=== PATIENT | male | born 1960 ===

== ENCOUNTER 2020-05-02 10:37 | Outpatient (REF) | payer OTHER, SELFPAY ==
--- NOTE | ~2020-05-02 | XR_ITS ---
EXAMINATION: XR CERVICAL SPINE CLINICAL INFORMATION: Cervicalgia COMPARISON: None TECHNIQUE: 3 views of the cervical spine were obtained. FINDINGS: There is straightening of the cervical lordosis. The vertebral bodies are normal in height. The odontoid is unremarkable. There is no vertebral compression, spondylolisthesis, destructive process, or prevertebral soft tissue swelling. There are degenerative disc changes with disc narrowing greatest at C5-C6 but also present at C4-C5 and C6-C7. There is borderline retrolisthesis C4 on C5 and also at C5 on C6, both likely related to the degenerative changes. There is hardware overlying the left clavicle. AP view may suggest atherosclerotic calcifications in the carotid arteries. XR/XR cervical spine 3V IMPRESSION: 1. Degenerative disc changes C4-C7 with borderline retrolisthesis. 2. No cervical vertebral compression, destructive process, or prevertebral soft tissue swelling. 3. Suspect atherosclerotic calcifications carotid arteries.
[2020-05-02 14:06] LABS: Hematocrit 46.6 % (42-52); Mean Corpuscular HGB Conc 34.3 g/dl (31.0-36.0); Mean Corpuscular Hemoglobin 30.1 pg (27.0-33.0); Mean Corpuscular Volume 87.8 fL (80-98); Mean Platelet Volume 10.2 fL (9.4-12.4); Platelet Count 222 X10*3/uL (160-400); Red Blood Count 5.31 X10*6/uL (4.60-5.80); Red Cell Distribution Width 12.8 % (11.0-16.0); White Blood Count 5.6 X10*3/uL (4.8-10.8)
[2020-05-02 14:38] LABS: Alanine Aminotransferase 31 U/L (0-40); Albumin Level 4.6 g/dL (3.5-5.0); Alkaline Phosphatase 66 U/L (39-117); Anion Gap 16 (12-20); Aspartate Amino Transferase 43 U/L (5-37); Bilirubin Direct 0.3 mg/dL (0.0-0.5); Bilirubin Total 0.7 mg/dL (0.0-1.0); Blood Urea Nitrogen 22 mg/dL (9-16); Calcium 9.2 mg/dL (8.4-10.2); Carbon Dioxide 22 mmol/L (22-29); Chloride 105 mmol/L (96-108); Cholesterol 177 mg/dL; Estimated Glomerular Filt Rate 58; Glucose Random 130 mg/dL (60-115); HDL Cholesterol 66 mg/dL; LDL Cholesterol Calculated 59 mg/dl; Potassium 4.5 mmol/L (3.3-5.1); Sodium 138 mmol/L (135-145); Total Protein 7.6 g/dL (6.5-8.0); Triglycerides 263 mg/dL
[2020-05-02 15:00] LABS: Thyroid Stimulating Hormone 0.88 uIU/mL (0.32-4.0)
[2020-05-07 10:37] LABS: Vitamin D 25-OH, D2 9 ng/mL; Vitamin D 25-OH, D3 21 ng/mL; Vitamin D 25-OH, Total 30 ng/mL (30-100)
== END 2020-05-02 10:38 | disposition home or self-care (01) ==
LOC: HO.HMGCX 10:37
PROVIDERS: PCP Internal Medicine; Visit Provider Internal Medicine
DX: M54.2 Cervicalgia (principal)
CPT/HCPCS: 36415; 72040; 80048; 80061; 80076; 82306; 84443; 85027

== ENCOUNTER 2020-07-06 12:50 | Outpatient (REF) | payer OTHER, SELFPAY ==
[2020-07-06 14:40] LABS: Prostate Specific Antigen Scr 0.37 ng/mL (<0.05-4.0)
== END 2020-07-06 12:51 | disposition home or self-care (01) ==
LOC: HO.HMGCLDS 12:50
PROVIDERS: PCP Internal Medicine; Visit Provider Internal Medicine
DX: Z12.5 Encounter for screening for malignant neoplasm of prostate (principal); N40.0 Benign prostatic hyperplasia without lower urinary tract symptoms
CPT/HCPCS: 36415; 84153

== ENCOUNTER 2020-09-28 13:00 | Outpatient (RCR) | payer OTHER, SELFPAY | END 2021-01-04 15:00 | disposition home or self-care (01) | LOC: HO.PTWFD 13:00 | PROVIDERS: PCP Internal Medicine; Visit Provider Internal Medicine | DX: I63.9 Cerebral infarction, unspecified (principal) | CPT/HCPCS: 97110; 97112; 97140; 97163; 97164; 97530; 97535 ==

== ENCOUNTER → 2020-10-31 12:31 | Outpatient (BNVA) | payer OTHER, SELFPAY | PROVIDERS: PCP Internal Medicine; Visit Provider Internal Medicine | DX: I48.91 Unspecified atrial fibrillation (principal); R06.00 Dyspnea, unspecified; I12.9 Hypertensive chronic kidney disease with stage 1 through stage 4 chronic kidney disease, or unspecified chronic kidney disease; N18.30 Chronic kidney disease, stage 3 unspecified; U07.1 COVID-19; Z86.73 Personal history of transient ischemic attack (TIA), and cerebral infarction without residual deficits; Z88.8 Allergy status to other drugs, medicaments and biological substances; Z79.899 Other long term (current) drug therapy | CPT/HCPCS: 99212 ==

== ENCOUNTER 2020-11-30 12:56 | Outpatient (REF) | payer OTHER, SELFPAY ==
[2020-11-30 13:53] LABS: MANUAL DIFF FLAG NO
[2020-11-30 14:22] LABS: Basophils Percent Auto 0.6 % (0-2); Eosinophils Absolute Auto 0.1 X10*3/uL (0.0-0.4); Eosinophils Percent Auto 1.8 % (0-4); Hematocrit 43.6 % (42-52); Hemoglobin 15.3 g/dl (14.0-18.0); Imm Gran Abs Auto 0.02 X10*3/uL (0.00-0.03); Imm Gran Pct Auto 0.3 % (0.0-0.4); Lymphocytes Absolute Auto 1.6 X10*3/uL (1.2-4.9); Lymphocytes Percent Auto 24.6 % (20-40); Mean Corpuscular HGB Conc 35.1 g/dl (31.0-36.0); Mean Corpuscular Hemoglobin 29.5 pg (27.0-33.0); Mean Platelet Volume 9.9 fL (9.4-12.4); Monocytes Absolute Auto 0.6 X10*3/uL (0.1-1.2); Monocytes Percent Auto 9.4 % (2-11); Neutrophils Absolute Auto 4.2 X10*3/uL (2.0-8.3); Neutrophils Percent Auto 63.3 % (45-73); Platelet Count 227 X10*3/uL (160-400); Red Blood Count 5.19 X10*6/uL (4.60-5.80); Red Cell Distribution Width 12.7 % (11.0-16.0); White Blood Count 6.6 X10*3/uL (4.8-10.8)
== END 2020-11-30 12:57 | disposition home or self-care (01) ==
LOC: HO.LAB 12:56
PROVIDERS: PCP Internal Medicine; Visit Provider Internal Medicine Pulmonary Disease
DX: J45.909 Unspecified asthma, uncomplicated (principal); Z57.5 Occupational exposure to toxic agents in other industries; Z86.16 Personal history of COVID-19; Z91.09 Other allergy status, other than to drugs and biological substances; Z79.899 Other long term (current) drug therapy
CPT/HCPCS: 36415; 82785; 85025; 86003; 99202

== ENCOUNTER 2020-12-17 15:40 | Outpatient (REF) | payer OTHER, SELFPAY ==
--- NOTE | 2020-12-17 17:07 | PFT_ITS ---
FLOWS: FEV1 69% of predicted at 2.14 L. FVC 70% of predicted at 2.82 L. FEV1 to FVC ratio of 0.76. No bronchodilator response. LUNG VOLUMES: Total lung capacity 81% of predicted at 5.03 L. Residual volume 102% of predicted at 2.12 L. Slow vital capacity 70% of predicted at 2.90 L. Expiratory reserve volume 46% of predicted at 0.52 L. Diffusion capacity is mildly decreased, diffusion capacity corrects to normal after adjustment for alveolar ventilation. IMPRESSION: No obstructive or restrictive ventilatory defect. No bronchodilator response. Decreased expiratory reserve volume suggests extrathoracic restriction likely secondary to abdominal obesity. Bradford Nova MD AP/MODL / [id number]
== END 2020-12-17 15:41 | disposition home or self-care (01) ==
LOC: HO.RESP 15:40
PROVIDERS: PCP Internal Medicine; Visit Provider Internal Medicine Pulmonary Disease
DX: J45.909 Unspecified asthma, uncomplicated (principal)
CPT/HCPCS: 94060; 94727; 94729

== ENCOUNTER → 2020-12-25 10:05 | Outpatient (BNVA) | payer OTHER, SELFPAY | PROVIDERS: PCP Internal Medicine; Visit Provider Internal Medicine Pulmonary Disease | DX: J45.909 Unspecified asthma, uncomplicated (principal); Z91.09 Other allergy status, other than to drugs and biological substances | CPT/HCPCS: 99212 ==

== ENCOUNTER → 2021-01-23 09:31 | Outpatient (BNVA) | payer OTHER, SELFPAY | PROVIDERS: PCP Internal Medicine; Visit Provider Internal Medicine Pulmonary Disease | DX: J45.909 Unspecified asthma, uncomplicated (principal); Z91.09 Other allergy status, other than to drugs and biological substances | CPT/HCPCS: 99212 ==

== ENCOUNTER 2021-03-13 11:14 | Outpatient (REF) | payer OTHER, SELFPAY ==
[2021-03-13 12:37] LABS: Hematocrit 46.8 % (42.0-52.0); Hemoglobin 15.3 g/dl (14.0-18.0); Mean Corpuscular HGB Conc 32.7 g/dl (31.0-36.0); Mean Corpuscular Hemoglobin 29.5 pg (27.0-33.0); Mean Corpuscular Volume 90.2 fL (80.0-98.0); Mean Platelet Volume 10.3 fL (9.4-12.4); Platelet Count 221 X10*3/uL (160-400); Red Blood Count 5.19 X10*6/uL (4.60-5.80); Red Cell Distribution Width 13.7 % (11.0-16.0); White Blood Count 6.3 X10*3/uL (4.8-10.8)
[2021-03-13 12:42] LABS: Appearance Urine HAZY; Color Urine YELLOW; Glucose Urine UA NEG (NEG); Leukocyte Esterase Urine NEG (NEG); Nitrite Urine NEG (NEG); PH 6.5 (5.0-8.0); Specific Gravity - Urine 1.025 (1.005-1.025); Urine Blood NEG (NEG); Urine Ketones 5 MG/DL (NEG); Urine Protein 1+ MG/DL (NEG-TRACE)
[2021-03-13 12:57] LABS: Hyaline Casts Urine 0-2 /LPF
[2021-03-13 12:58] LABS: RBC Urine 0 /HPF (0); WBC Urine 0-2 /HPF (0-4)
[2021-03-13 12:59] LABS: Amorphous Sediment Urine 1+ /LPF
[2021-03-13 13:00] LABS: Renal Epithelial Cells Urine TRACE /LPF; Squamous Epithelial Cell Urine 1+ /LPF
[2021-03-13 13:02] LABS: Sperm Urine NOTED
[2021-03-13 13:06] LABS: Alanine Aminotransferase 35 U/L (0-40); Albumin Level 4.5 g/dL (3.5-5.0); Alkaline Phosphatase 73 U/L (39-117); Anion Gap 13 (12-20); Aspartate Amino Transferase 37 U/L (5-37); Bilirubin Direct 0.2 mg/dL (0.0-0.5); Bilirubin Total 0.5 mg/dL (0.0-1.0); Blood Urea Nitrogen 21 mg/dL (9-16); C Reactive Protein 0.43 mg/dL (< or = 0.50); Calcium 9.6 mg/dL (8.4-10.2); Carbon Dioxide 26 mmol/L (22-29); Chloride 107 mmol/L (96-108); Cholesterol 163 mg/dL; Estimated Glomerular Filt Rate 45; Glucose Random 109 mg/dL (60-115); HDL Cholesterol 53 mg/dL; LDL Cholesterol Calculated 76 mg/dl; Potassium 4.9 mmol/L (3.3-5.1); Sodium 141 mmol/L (135-145); Total Protein 7.4 g/dL (6.5-8.0); Triglycerides 172 mg/dL
[2021-03-15 22:33] LABS: Immunoglobulin E 185 kU/L (<OR=114)
== END 2021-03-13 11:15 | disposition home or self-care (01) ==
LOC: HO.LAB 11:14
PROVIDERS: Internal Medicine Pulmonary Disease; PCP Internal Medicine; Visit Provider Internal Medicine
DX: I48.91 Unspecified atrial fibrillation (principal); I12.9 Hypertensive chronic kidney disease with stage 1 through stage 4 chronic kidney disease, or unspecified chronic kidney disease; N18.30 Chronic kidney disease, stage 3 unspecified; I63.9 Cerebral infarction, unspecified; M54.50 Low back pain, unspecified; Z91.09 Other allergy status, other than to drugs and biological substances
CPT/HCPCS: 36415; 80048; 80061; 80076; 81001; 82785; 85027; 86140

== ENCOUNTER → 2021-03-21 09:01 | Outpatient (BNVA) | payer OTHER, SELFPAY | PROVIDERS: PCP Internal Medicine; Referring Provider Internal Medicine; Visit Provider Internal Medicine Cardiovascular Disease | DX: R06.00 Dyspnea, unspecified (principal); I34.0 Nonrheumatic mitral (valve) insufficiency; I48.91 Unspecified atrial fibrillation; N18.30 Chronic kidney disease, stage 3 unspecified | CPT/HCPCS: 93005; 99212 ==

== ENCOUNTER → 2021-04-05 07:37 | Outpatient (REF) | payer OTHER, SELFPAY ==
--- NOTE | 2021-04-05 07:40 | CA_ITS ---
Transthoracic Echocardiogram Patient (Last, First, Middle): Andrey Chao A Gender: Male Date of : 1960 Age: 60 Procedure Date: 04/05/2021 Procedure Type: Transthoracic Echocardiogram Location: OP Height: 170.18 cm Weight: 95.26 kg BSA: 2.06 m2 Heart Rate: bpm BP: 190 / 89 mmHg Coal Miner: NIKOLAS Referring MD: Keith Soliman MD Symptoms: I34.0 - Nonrheumatic mitral (valve) insufficiency Study Quality: Fair Conclusions: - Normal left ventricular size, thickness, and systolic function. The visually estimated ejection fraction is between 60-65%. - Normal right ventricular cavity size and systolic function. - The left atrium is severely dilated. The right atrium is moderately dilated. - The mitral valve appears myxomatous. There is mild anterior and posterior mitral leaflet thickening. There is mild posterior mitral leaflet prolapse. There is moderate mitral valve regurgitation. The mitral regurgitation jet is directed anteriorly. - Normal tricuspid valve structure and function. There is mild tricuspid valve regurgitation. Findings Left Ventricle Normal left ventricular size, thickness, and systolic function. The visually estimated ejection fraction is between 60-65%. There is no evidence of regional wall motion abnormalities. Abnormal diastolic function is noted. E/E prime ratio is >15, consistent with elevated filling pressures. Right Ventricle Normal right ventricular cavity size and systolic function. Atria The left atrium is severely dilated. The right atrium is moderately dilated. Aortic Valve Normal aortic valve structure and function. There is no aortic valve stenosis. There is no aortic valve regurgitation. Mitral Valve The mitral valve appears myxomatous. There is mild anterior and posterior mitral leaflet thickening. There is mild posterior mitral leaflet prolapse. There is moderate mitral valve regurgitation. The mitral regurgitation jet is directed anteriorly. There is no mitral valve stenosis. Pulmonic Valve Normal pulmonic valve structure and function. There is trace pulmonic valve regurgitation. Tricuspid Valve Normal tricuspid valve structure and function. There is mild tricuspid valve regurgitation. Normal right atrial pressure. There is no evidence of pulmonary hypertension. Great Vessels All visible segments of the aorta are normal in size. The visualized portions of the pulmonary artery and branches are normal. Venous The inferior vena cava is normal in size and collapses greater than 50% with inspiration. Pericardium/Pleural There is no evidence of pericardial effusion. Prior Study Comparison Changes noted compared to prior study dated: 03/11/2018. Severely dilated LA. Measurements 2D Linear Measurements IVSd: 0.81 0.6-0.9/0.6-1.0 cm LVIDd: 5.39 3.9-5.3/4.2-5.9 cm LVIDd Index: 2.62 2.4-3.2/2.2-3.1 cm/m2 LVIDs: 3.54 2.0-3.6 cm LVPWd: 0.82 0.7-1.1 cm Ao Root: 3.10 2.1-3.5 cm LA Diam: 5.60 2.7-3.8/3.0-4.0 cm LAIDs Index: 2.72 1.5-2.3 cm/m2 LV Mass: 197.86 67-162/88-224 g LV Mass Index: 96.05 43-95/49-115 g/m2 LVOT Diam: 2.20 3.0+(-)1.3 cm 2D Systolic Function EF 4C: 66.00 >55% EF 2C: 62.50 >55% EF BiP: 61.30 >55% Mitral Valve MV Pk E: 1.39 MV PK A: 0.58 MV Decel Time: 141.00 E/A: 2.40 E'Lateral: 12.00 E'Medial: 6.85 E/E' Med: 20.30 E/E' Lat: 11.60 PHT: 41.00 MVA PHT: 5.37 Decel [place]: 9.89 MR Vol - PW Dopp: 47.60 MR VTI: 1.36 MR ERO: 35.00 MR Alias Sabino: 0.42 MR RAD: 0.80 Aortic Valve AoV Pk Sabino: 1.03 AoV Mn Sabino: 0.64 AoV VTI: 0.20 AoV Pk Grad: 4.00 Aov Mn Grad: 2.00 BRIAN Cont.VTI: 3.40 LVOT LVOT Pk [place]ino: 0.91 LVOT Mn Sabino: 0.58 LVOT VTI: 0.18 LVOT Pk Grad: 3.00 LVOT Mn Grad: 2.00 LVOT Diam: 2.20 LVOT Area: 3.80 Diastolic Function MV Pk E: 1.39 MV Pk A: 0.58 E/A: 2.40 E'Medial: 6.85 E/E' Med: 20.30 E' Laterial: 12.00 E/E' Lat: 11.60 Right Ventricle TAPSE (mm): 17.50 TVS' Sabino: 9.36 Tricuspid Valve TR Pk Sabino: 2.76 TR Pk Grad: 30.00 RA Press: 3.00 RVSP: 33.00 Great Vessels Aorta Ao Root-2D: 3.10 2.0-3.7 cm Ao Asc: 3.30 2.1-3.4 cm Updated in Other Vendor System with Status of Final Keith Soliman MD electronically signed on 04/06/2021 11:02:09 PM with status of Final
== END ==
LOC: HO.CARD 07:37
PROVIDERS: Visit Provider Internal Medicine Cardiovascular Disease
DX: I34.0 Nonrheumatic mitral (valve) insufficiency (principal)
CPT/HCPCS: 93306

== ENCOUNTER → 2021-05-29 09:26 | Outpatient (BNVA) | payer OTHER, SELFPAY | PROVIDERS: PCP Internal Medicine; Visit Provider Internal Medicine Pulmonary Disease | DX: J45.909 Unspecified asthma, uncomplicated (principal); Z91.09 Other allergy status, other than to drugs and biological substances | CPT/HCPCS: 99212 ==

== ENCOUNTER → 2021-07-11 13:37 | Outpatient (BNVA) | payer OTHER, SELFPAY | PROVIDERS: PCP Internal Medicine; Referring Provider Internal Medicine; Visit Provider Nurse Practitioner Family | DX: R06.00 Dyspnea, unspecified (principal); J45.909 Unspecified asthma, uncomplicated; I34.0 Nonrheumatic mitral (valve) insufficiency; I48.91 Unspecified atrial fibrillation; I10 Essential (primary) hypertension; R07.89 Other chest pain | CPT/HCPCS: 93005; Q3014 ==

== ENCOUNTER 2021-09-11 10:14 | Outpatient (REF) | payer OTHER, SELFPAY ==
[2021-09-11 11:18] LABS: MANUAL DIFF FLAG NO
[2021-09-11 11:34] LABS: Basophils Percent Auto 0.6 % (0-2); Eosinophils Absolute Auto 0.1 X10*3/uL (0.0-0.4); Eosinophils Percent Auto 1.7 % (0-4); Hematocrit 46.8 % (42.0-52.0); Hemoglobin 15.8 g/dl (14.0-18.0); Imm Gran Abs Auto 0.01 X10*3/uL (0.00-0.03); Imm Gran Pct Auto 0.2 % (0.0-0.4); Lymphocytes Absolute Auto 1.6 X10*3/uL (1.2-4.9); Lymphocytes Percent Auto 30.1 % (20-40); Mean Corpuscular HGB Conc 33.8 g/dl (31.0-36.0); Mean Corpuscular Hemoglobin 29.8 pg (27.0-33.0); Mean Corpuscular Volume 88.3 fL (80.0-98.0); Mean Platelet Volume 9.9 fL (9.4-12.4); Monocytes Absolute Auto 0.4 X10*3/uL (0.1-1.2); Monocytes Percent Auto 7.9 % (2-11); Neutrophils Absolute Auto 3.2 x10*3/uL (2.0-8.3); Neutrophils Percent Auto 59.5 % (45-73); Platelet Count 222 X10*3/uL (160-400); Red Cell Distribution Width 12.6 % (11.0-16.0); White Blood Count 5.3 X10*3/uL (4.8-10.8)
[2021-09-11 11:52] LABS: INTERNATIONAL NORM RATIO 1.1 (0.9-1.1); Prothrombin Time 12.4 SEC (10.0-13.1)
[2021-09-11 12:01] LABS: Anion Gap 14 (12-20); Blood Urea Nitrogen 24 mg/dL (9-16); Calcium 9.7 mg/dL (8.4-10.2); Carbon Dioxide 24 mmol/L (22-29); Chloride 105 mmol/L (96-108); Estimated Glomerular Filt Rate 50; Glucose Random 116 mg/dL (60-115); Potassium 4.4 mmol/L (3.3-5.1); Sodium 139 mmol/L (135-145)
== END 2021-09-11 10:15 | disposition home or self-care (01) ==
LOC: HO.WFDLDS 10:14
PROVIDERS: Visit Provider Nurse Practitioner Family
DX: R07.89 Other chest pain (principal); I34.0 Nonrheumatic mitral (valve) insufficiency
CPT/HCPCS: 36415; 80048; 85025; 85610

== ENCOUNTER → 2021-10-03 13:04 | Outpatient (BNVA) | payer OTHER, SELFPAY | PROVIDERS: PCP Internal Medicine; Referring Provider Internal Medicine; Visit Provider Nurse Practitioner Family | DX: I48.91 Unspecified atrial fibrillation (principal); R06.00 Dyspnea, unspecified; R07.89 Other chest pain; Z98.890 Other specified postprocedural states; J45.909 Unspecified asthma, uncomplicated; I34.0 Nonrheumatic mitral (valve) insufficiency; I10 Essential (primary) hypertension | CPT/HCPCS: 99212 ==

== ENCOUNTER 2021-10-22 12:42 | Outpatient (REF) | payer OTHER, SELFPAY ==
[2021-10-22 14:33] LABS: Anion Gap 19 (12-20); Blood Urea Nitrogen 22 mg/dL (9-16); Calcium 9.3 mg/dL (8.4-10.2); Carbon Dioxide 25 mmol/L (22-29); Chloride 101 mmol/L (96-108); Estimated Glomerular Filt Rate 42; Glucose Random 123 mg/dL (60-115); Sodium 141 mmol/L (135-145)
== END 2021-10-22 12:43 | disposition home or self-care (01) ==
LOC: HO.WFDLDS 12:42
PROVIDERS: Visit Provider Nurse Practitioner Family
DX: I48.91 Unspecified atrial fibrillation (principal); R06.00 Dyspnea, unspecified
CPT/HCPCS: 36415; 80048

== ENCOUNTER 2021-10-30 11:34 | Day surgery (SDC) | payer OTHER, SELFPAY ==
[2021-10-24 13:59] VITALS: BMI 33.1
--- NOTE | 2021-10-29 09:23 | P.CONAN_ITS ---
Documented by User: Estee Mac NP 10/29/21 09:44 HPI - Anesthesia Eval Consult details Narrative: 61yo M for Cardioversion Eliquis for afib PMFSH Active Problems Active Problems: All Active Problems (Updated 10/24/21 @ 13:59 by Mahi Coffman RN) Prostatism (Acute) Paronychia of fifth toe, left (Acute) GROVE (dyspnea on exertion) (Acute) Asthma (Acute) Environmental allergies (Acute) Chronic pain syndrome (Acute) Mitral regurgitation (Acute) Chest discomfort (Acute) Atrial fibrillation (Acute) History of cardiac cath (Acute) Stage 3 chronic kidney disease (Acute) Cerebrovascular accident (CVA) determined by clinical assessment (Acute) Atrial fibrillation (Acute) Low back pain (Acute) Neck pain (Acute) Essential (primary) hypertension (Acute) Past Medical History Medical History Atrial fibrillation Cerebrovascular accident (CVA) determined by clinical assessment Essential (primary) hypertension History of COVID-19 Low back pain Neck pain Stage 3 chronic kidney disease Family History Family History Father No problems noted. Mother Hypertension Surgical History Surgical History History of cardiac cath History of shoulder surgery Social History Social History Housing: House Alcohol intake: current Alcohol intake frequency: a few times a week Patient Tobacco Use Status: Never used Tobacco e-Cigarette/Vaping Use: Never Used Second Hand Smoke Exposure: No Use of substances other than those prescribed or required for medical reasons: No Are you DNR?: No Advance Directives: No Advance Directives Information Provided: Yes service: Yes (was in [employer]) Current occupational status: disabled Cognitive needs: No Hearing needs: No Vision needs: No Meds Allergies Allergy/AdvReac Type Severity Reaction Status Date / Time lisinopril Allergy Intermediate swelling Verified 10/24/21 14:01 Home Medications Medication Instructions Recorded Confirmed Last Taken Type furosemide 40 mg tablet 40 mg PO DAILY 10/03/21 10/24/21 Unknown History Exam Exam Date and Time: October 29, [id number] Height,Weight and Vital Signs: Height 5 ft 8 in Weight 98.8 kg Pertinent Lab Results Pertinent Lab Results: Laboratory Tests 09/11/21 10/22/21 10:20 12:50 WBC 5.3 Hgb 15.8 Hct 46.8 Plt Count 222 Sodium 141 Potassium 4.0 Chloride 101 Carbon Dioxide 25 BUN 22 H Creatinine 1.65 H Narrative Narrative: Cardiac catheterization done on 09/17/2021 showing normal coronary arteries, mildly elevated pressures and he was started on Lasix 40 mg daily. EKG 06/2021 atrial fibrillation with no acute ST or T-wave abnormalities, rate 89, QTC 442 millisecond ECHO 03/2021 Conclusions: - Normal left ventricular size, thickness, and systolic function. The visually estimated ejection fraction is between 60-65%.? ? ? - Normal right ventricular cavity size and systolic function.? ? - The left atrium is severely dilated.? The right atrium is? ? ? moderately dilated.? - The mitral valve appears myxomatous.? There is mild anterior ? and posterior mitral leaflet thickening. There is mild posterior mitral leaflet prolapse.? There is moderate mitral valve ? regurgitation.? The mitral regurgitation jet is directed ? anteriorly.? - Normal tricuspid valve structure and function.? There is mild? tricuspid valve regurgitation. ? ? Assessment and Plan Assessment Anesthesia Assessment: Chart Reviewed Documented by User: Goran Chavez MD 10/30/21 12:58 [facility] Past Medical History Medical History Atrial fibrillation Cerebrovascular accident (CVA) determined by clinical assessment Essential (primary) hypertension History of COVID-19 Low back pain Neck pain Stage 3 chronic kidney disease Family History Family History Father No problems noted. Mother Hypertension Family history of problems with anesthesia: No Surgical History Surgical History History of cardiac cath History of shoulder surgery History of Problems with Anesthesia: No Social History Social History Housing: House Alcohol intake: current Alcohol intake frequency: a few times a week Patient Tobacco Use Status: Never used Tobacco e-Cigarette/Vaping Use: Never Used Second Hand Smoke Exposure: No Use of substances other than those prescribed or required for medical reasons: No Are you DNR?: No Advance Directives: No Advance Directives Information Provided: Yes service: Yes (was in [employer]) Current occupational status: disabled Cognitive needs: No Hearing needs: No Vision needs: No Meds Allergies Allergy/AdvReac Type Severity Reaction Status Date / Time lisinopril Allergy Intermediate swelling Verified 10/24/21 14:01 Home Medications Medication Instructions Recorded Confirmed Last Taken Type furosemide 40 mg tablet 40 mg PO DAILY 10/03/21 10/24/21 Unknown History Exam Airway Mallampati Class: II TM Dist: >3cm Neck ROM: Full Loose/Missing/Broken Teeth: No Heart: irreg irreg s1s2 Lungs: cta b/l Assessment and Plan Assessment Anesthesia Assessment: Anesthesia Plan Discussed Final Anesthetic Review Family History of Problems with Anesthesia: No History of Problems with Anesthesia: No NPO: Yes ASA Class: III Final Preanesthetic Review: No Changes in Pt Med Stat, Meds/Allgs Chart Reviewed, Consent Obtained/Reviewed and Anes Risks/Benef Reviewed Patient Risk: Intermediate Procedure Risk: Intermediate Assessment/Block/Sedation in SS: Assess/Block/Sedation-SS Anesthetic Plan Anesthetic Plan: GA and Agree w/ Assess. and Plan Disposition: Standard PACU
--- NOTE | 2021-10-30 | ECG_ITS ---
Test Reason : cardioversion Blood Pressure : / mmHG Vent. Rate : 059 BPM Atrial Rate : 059 BPM P-R Int : 190 ms QRS Dur : 092 ms QT Int : 460 ms P-R-T Axes : 070 000 036 degrees QTc Int : 455 ms Sinus bradycardia with Premature atrial complexes Otherwise normal ECG No previous ECGs available Referred By: Keith Soliman Electronically Signed By:PERRY LOGAN
[2021-10-30 12:29] VITALS: BMI 32.8
[2021-10-30 13:00] VITALS: BP 120/80; PULSE 66; RESP 16; TEMP 36.4; O2SAT 97
--- NOTE | 2021-10-30 13:06 | HO.ANESPROP2 ---
HPI - Anesthesia Eval Consult details Narrative: for cardioversion. [facility] Active Problems Active Problems: All Active Problems (Updated 10/24/21 @ 13:59 by Mahi Coffman RN) Prostatism (Acute) Paronychia of fifth toe, left (Acute) GROVE (dyspnea on exertion) (Acute) Asthma (Acute) Environmental allergies (Acute) Chronic pain syndrome (Acute) Mitral regurgitation (Acute) Chest discomfort (Acute) Atrial fibrillation (Acute) History of cardiac cath (Acute) Stage 3 chronic kidney disease (Acute) Cerebrovascular accident (CVA) determined by clinical assessment (Acute) Atrial fibrillation (Acute) Low back pain (Acute) Neck pain (Acute) Essential (primary) hypertension (Acute) Past Medical History Medical History Atrial fibrillation Cerebrovascular accident (CVA) determined by clinical assessment Essential (primary) hypertension History of COVID-19 Low back pain Neck pain Stage 3 chronic kidney disease Family History Family History Father No problems noted. Mother Hypertension Family history of problems with anesthesia: No Surgical History Surgical History History of cardiac cath History of shoulder surgery History of Problems with Anesthesia: No Social History Social History Housing: House Alcohol intake: current Alcohol intake frequency: a few times a week Patient Tobacco Use Status: Never used Tobacco e-Cigarette/Vaping Use: Never Used Second Hand Smoke Exposure: No Use of substances other than those prescribed or required for medical reasons: No Are you DNR?: No Advance Directives: No Advance Directives Information Provided: Yes service: Yes (was in [employer]) Current occupational status: disabled Cognitive needs: No Hearing needs: No Vision needs: No Meds Allergies Allergy/AdvReac Type Severity Reaction Status Date / Time lisinopril Allergy Intermediate swelling Verified 10/24/21 14:01 Active Medications: Current Medications Albuterol Sulfate (Albuterol Sulfate (0.083%) 2.5 Mg/3 Ml Vial.Neb) 2.5 mg INHALE ONCE PRN PRN Reason: Shortness of Breath/Wheezing Lactated Ringer's (Lr) 1,000 mls @ 50 mls/hr IVCONT .Q20H IFRAH Ondansetron HCl (Ondansetron Hcl 4 Mg/2 Ml Vial) 4 mg IVPUSH ONCE PRN PRN Reason: Nausea and Vomiting Home Medications Medication Instructions Recorded Confirmed Last Taken Type furosemide 40 mg tablet 40 mg PO DAILY 10/03/21 10/24/21 Unknown History Exam Exam Date and Time: October 30, 2021 1306 Height,Weight and Vital Signs: Height 5 ft 7 in Weight 95.254 kg Assessment and Plan Final Anesthetic Review Family History of Problems with Anesthesia: No History of Problems with Anesthesia: No
[2021-10-30] MEDS: Lactated Ringers 1,000 ML 50 ML IVCONT (13:07)
--- NOTE | 2021-10-30 13:32 | MHC.SHP ---
Pre-Procedural Eval Section A Date of Service: 10/30/21 The patient is an INPATIENT: No Section B Chief Complaint: a-fib Details of Present Illness: Afib. Here for cardioversion. Allergies: Allergies Allergy/AdvReac Type Severity Reaction Status Date / Time lisinopril Allergy Intermediate swelling Verified 10/24/21 14:01 Plan Diagnosis/Plan: Unchanged I have reviewed the history and physical and performed a pertinent physical examination on my patient. No changes have occurred unless specified.
--- NOTE | 2021-10-30 13:57 | HO.CARDIVERS ---
Cardioversion Procedure Note Cardioversion Date of Procedure: 10/30/21 Ordering Provider: Keith Soliman Performing Provider: Keith Soliman Indication for Procedure: Afib Performed with Transesophageal Echo: No History: 61 male with moderate MR, GROVE and Afib. Here for cardioversion. Consent: Verbal and Written consent was obtained from the patient before starting. The patient was made aware of the risk of stroke, aspiration and failure. Procedure: After consent obtained, defib pads were attached and the patient was sedated by the anesthesia team. Once adequate sedation achieved, the patient was given one synchronized shock of 200 J. He converted to sinus rhythm and went back into Afib. At this stage we gave 150 mg IV amiodarone and tried cardioversion which reverted him to sinus rhythm and he stayed sinus. Complications: none Recommendations: Stop Diltiazem. Adding Flecainide 100 mg BID. Holter x 3 days to assess Afib burden.
[2021-10-30 14:00] VITALS: BP 108/73; PULSE 58; RESP 16; TEMP 36.3; O2SAT 97
[2021-10-30 14:16] VITALS: BP 113/70; PULSE 56; RESP 17; TEMP 37.3; O2SAT 97
== END 2021-10-30 14:50 | disposition home or self-care (01) ==
PROVIDERS: Visit Provider Internal Medicine Cardiovascular Disease
PROC: 5A2204Z Restoration of Cardiac Rhythm, Single (ICD-10-PCS; principal; 2021-10-30 13:00)
DX: I48.19 Other persistent atrial fibrillation (principal); R07.89 Other chest pain; R06.00 Dyspnea, unspecified; J45.909 Unspecified asthma, uncomplicated; I34.0 Nonrheumatic mitral (valve) insufficiency; I26.99 Other pulmonary embolism without acute cor pulmonale; I12.9 Hypertensive chronic kidney disease with stage 1 through stage 4 chronic kidney disease, or unspecified chronic kidney disease; N18.30 Chronic kidney disease, stage 3 unspecified; E66.9 Obesity, unspecified; Z68.33 Body mass index [BMI] 33.0-33.9, adult; Z79.01 Long term (current) use of anticoagulants; Z79.51 Long term (current) use of inhaled steroids; Z79.899 Other long term (current) drug therapy; Z88.8 Allergy status to other drugs, medicaments and biological substances; Z86.16 Personal history of COVID-19; Z86.73 Personal history of transient ischemic attack (TIA), and cerebral infarction without residual deficits; Z98.890 Other specified postprocedural states
CPT/HCPCS: 92960; 93005; J0282

== ENCOUNTER → 2021-11-26 13:47 | Outpatient (BNVA) | payer OTHER, SELFPAY | PROVIDERS: PCP Internal Medicine; Referring Provider Internal Medicine; Visit Provider Nurse Practitioner Family | DX: I48.19 Other persistent atrial fibrillation (principal); R06.00 Dyspnea, unspecified; J45.909 Unspecified asthma, uncomplicated; I34.0 Nonrheumatic mitral (valve) insufficiency; I10 Essential (primary) hypertension; Z79.899 Other long term (current) drug therapy | CPT/HCPCS: 93005; 99212 ==

== ENCOUNTER → 2021-11-27 09:34 | Outpatient (BNVA) | payer OTHER, SELFPAY | PROVIDERS: PCP Internal Medicine; Visit Provider Internal Medicine Pulmonary Disease | DX: J45.909 Unspecified asthma, uncomplicated (principal); R06.00 Dyspnea, unspecified; Z91.09 Other allergy status, other than to drugs and biological substances | CPT/HCPCS: 99212 ==

== ENCOUNTER → 2021-12-09 07:24 | Outpatient (REF) | payer OTHER, SELFPAY ==
--- NOTE | 2021-12-09 07:26 | HM_ITS ---
Conclusion: 1. Patient was monitored for total period of 3 days and 4 hours 2. Baseline was atrial fibrillation with average heart of 75 beats per minute 3. No significant pauses or bradycardia noted 4. Total of 228 PVCs accounting for 0.07% of total beats accounting for rare PVCs 5. Patient reported symptoms of shortness of breath and chest tightness that correlated with sinus rhythm MTDD
== END ==
LOC: HO.CARD 07:24
PROVIDERS: Visit Provider Nurse Practitioner Family
DX: I48.91 Unspecified atrial fibrillation (principal)
CPT/HCPCS: 93242

== ENCOUNTER → 2022-03-13 13:34 | Outpatient (BNVA) | payer OTHER, SELFPAY | PROVIDERS: PCP Internal Medicine; Referring Provider Internal Medicine; Visit Provider Internal Medicine Cardiovascular Disease | DX: R06.00 Dyspnea, unspecified (principal); I48.91 Unspecified atrial fibrillation; I34.0 Nonrheumatic mitral (valve) insufficiency; I10 Essential (primary) hypertension; N18.30 Chronic kidney disease, stage 3 unspecified; J45.909 Unspecified asthma, uncomplicated; Z86.711 Personal history of pulmonary embolism; Z98.890 Other specified postprocedural states | CPT/HCPCS: 93005; 99212 ==

== ENCOUNTER 2022-03-27 11:29 | Day surgery (SDC) | payer OTHER, SELFPAY ==
[2022-03-20 14:32] VITALS: BMI 33.3
[2022-03-27] VITALS (9 sets, daily range): BP systolic 134–153; BP diastolic 73–88; PULSE 58–77; RESP 16–21; TEMP 36.4–36.7; O2SAT 95–98
--- NOTE | 2022-03-27 | ECG_ITS ---
Test Reason : S/P CARDIOVERSION Blood Pressure : / mmHG Vent. Rate : 060 BPM Atrial Rate : 060 BPM P-R Int : 182 ms QRS Dur : 084 ms QT Int : 454 ms P-R-T Axes : 031 -02 022 degrees QTc Int : 454 ms Normal sinus rhythm Normal ECG When compared with ECG of 30-OCT-2021 13:56, Premature atrial complexes are no longer Present Referred By: Keith Soliman Electronically Signed By:Keith Soliman
--- NOTE | 2022-03-27 11:20 | MHC.SHP ---
Pre-Procedural Eval Section A Date of Service: 03/27/22 The patient is an INPATIENT: Yes Section B Chief Complaint: Unspecified atrial fibrillation Details of Present Illness: PAF. Symptomatic with GROVE. Allergies: Allergies Allergy/AdvReac Type Severity Reaction Status Date / Time lisinopril Allergy Intermediate swelling Verified 03/13/22 13:40 Plan Diagnosis/Plan: Unchanged I have reviewed the history and physical and performed a pertinent physical examination on my patient. No changes have occurred unless specified. Time Spent With Patient Time: Total time managing care of this patient today ____ minutes.
[2022-03-27] MEDS: Lactated Ringers 1,000 ML 50 ML IVCONT (11:53)
--- NOTE | 2022-03-27 12:29 | HO.CARDIVERS ---
Cardioversion Procedure Note Cardioversion Date of Procedure: 03/27/22 Ordering Provider: Keith Soliman Performing Provider: Keith Soliman Indication for Procedure: Atrial fibrillation. Dyspnea on exertion. History: 61-year-old gentleman with mitral valve regurgitation and atrial fibrillation. He has dyspnea on exertion which improved after cardioversion but unfortunately went back into atrial fibrillation. He was loaded with amiodarone brought back for cardioversion. Consent: Verbal and Written consent was obtained from the patient before starting. The patient was made aware of the risk of stroke, skin christopher and failure to achieve sinus rhythm. Procedure: After consent obtained, defib pads were attached and the patient was sedated by the anesthesia team. Once adequate sedation achieved, single synchronized shock of 200 joules was given to the patient and he reverted to sinus rhythm. He was left with Anesthesia for recovery. Complications: None Recommendations: Continue apixaban 5 mg twice a day uninterrupted. Continue amiodarone and metoprolol 50 mg twice a day. We will refer the patient for AFib ablation.
== END 2022-03-27 14:22 | disposition home or self-care (01) ==
PROVIDERS: PCP Internal Medicine; Visit Provider Internal Medicine Cardiovascular Disease
PROC: 5A2204Z Restoration of Cardiac Rhythm, Single (ICD-10-PCS; principal; 2022-03-27 13:00)
DX: I48.91 Unspecified atrial fibrillation (principal); I34.0 Nonrheumatic mitral (valve) insufficiency; R06.00 Dyspnea, unspecified
CPT/HCPCS: 92960; 93005; J0461

== ENCOUNTER → 2022-03-31 12:31 | Outpatient (REF) | payer OTHER, SELFPAY ==
--- NOTE | 2022-03-31 12:34 | CA_ITS ---
Transthoracic Echocardiogram Patient (Last, First, Middle): Andrey Chao A Gender: Male Date of : 1960 Age: 61 Procedure Date: 03/31/2022 Procedure Type: Transthoracic Echocardiogram Location: OP Height: 170.18 cm Weight: 95.26 kg BSA: 2.06 m2 Heart Rate: 54 bpm BP: 130 / 78 mmHg Cable Dispatcher: MAGAN Referring MD: Keith Soliman MD Head Sawyer Automatic: Keith Soliman MD Symptoms: I34.0 - Nonrheumatic mitral (valve) insufficiency Study Quality: Adequate w contrast ECG Rhythm: Bradycardia Conclusions: - Normal left ventricular size, thickness, and systolic function. The visually estimated ejection fraction is between 55-60%. - E/E prime ratio is >15, consistent with elevated filling pressures. - RV is borderline dilated and has borderline systolic dysfunction. - The left atrium is severely dilated. - There is an interatrial septal aneurysm seen. - RA is dilated. - The mitral valve appears myxomatous. There is mild mitral valve regurgitation. - Mild pulmonary hypertension is present. Findings Procedure Information Contrast agent, definity, is being given per protocol without apparent complications. Left Ventricle Normal left ventricular size, thickness, and systolic function. The visually estimated ejection fraction is between 55-60%. There is no evidence of regional wall motion abnormalities. Abnormal diastolic function is noted. Spectral Doppler is indicative of an impaired relaxation filling pattern. E/E prime ratio is >15, consistent with elevated filling pressures. Right Ventricle RV is borderline dilated and has borderline systolic dysfunction. Atria The left atrium is severely dilated. There is an interatrial septal aneurysm seen. There is no evidence of interatrial shunt by color Doppler. RA is dilated. Aortic Valve There is a normal trileaflet aortic valve. There is no aortic valve stenosis. There is no aortic valve regurgitation. Mitral Valve The mitral valve appears myxomatous. There is mild mitral valve regurgitation. The mitral regurgitation jet is directed anteriorly. There is no mitral valve stenosis. Pulmonic Valve The pulmonic valve is likely normal. Tricuspid Valve Normal tricuspid valve structure. There is no tricuspid valve regurgitation. Normal right atrial pressure. Mild pulmonary hypertension is present. Great Vessels There is mild dilatation of the ascending aorta measuring 3.50 cm. The visualized portions of the pulmonary artery and branches are normal. Venous The inferior vena cava is normal in size and collapses greater than 50% with inspiration. Pericardium/Pleural Prominent epicardial adipose tissue noted. There is no evidence of pericardial effusion. Prior Study Comparison Changes noted compared to prior study dated: 04/05/2021. Borderline RV dysfunction. Mild mitral valve regurgitation. Measurements 2D Linear Measurements IVSd: 1.07 0.6-0.9/0.6-1.0 cm LVIDd: 5.07 3.9-5.3/4.2-5.9 cm LVIDd Index: 2.46 2.4-3.2/2.2-3.1 cm/m2 LVIDs: 3.71 2.0-3.6 cm LVPWd: 0.78 0.7-1.1 cm LA Diam: 5.30 2.7-3.8/3.0-4.0 cm LAIDs Index: 2.57 1.5-2.3 cm/m2 LV Mass: 208.94 67-162/88-224 g LV Mass Index: 101.43 43-95/49-115 g/m2 LVOT Diam: 2.20 3.0+(-)1.3 cm 2D Systolic Function EF 4C: 64.80 >55% EF 2C: 42.30 >55% EF BiP: 54.70 >55% Mitral Valve MV Pk E: 1.14 MV PK A: 0.37 MV Decel Time: 132.00 E/A: 3.10 E'Lateral: 7.37 E'Medial: 5.12 E/E' Med: 22.30 E/E' Lat: 15.50 PHT: 39.00 MVA PHT: 5.64 Decel [place]: 8.60 Aortic Valve AoV Pk Sabino: 1.13 AoV Mn Sabino: 0.72 AoV VTI: 0.22 AoV Pk Grad: 5.00 Aov Mn Grad: 3.00 BRIAN Cont.VTI: 2.16 LVOT LVOT Pk Sabino: 0.68 LVOT Mn Sabino: 0.43 LVOT VTI: 0.13 LVOT Pk Grad: 2.00 LVOT Mn Grad: 1.00 LVOT Diam: 2.20 LVOT Area: 3.80 Diastolic Function MV Pk E: 1.14 MV Pk A: 0.37 E/A: 3.10 E'Medial: 5.12 E/E' Med: 22.30 E' Laterial: 7.37 E/E' Lat: 15.50 Right Ventricle TAPSE (mm): 19.70 TVS' Sabino: 8.80 Tricuspid Valve TR Pk Sabino: 3.11 TR Pk Grad: 39.00 RA Press: 3.00 RVSP: 42.00 Great Vessels Aorta Sinus of Valsalva: 3.10 2.0-3.5 cm Ao Asc: 3.50 2.1-3.4 cm Pulmonary Veins Pulm Vein S/D 0.60 Pulmonary Valve PV Pk Sabino: 0.75 Peak PV Grad: 2.00 Updated in Other Vendor System with Status of Final Keith Soliman MD electronically signed on 04/02/2022 12:59:06 PM with status of Final
== END ==
LOC: HO.CARD 12:31
PROVIDERS: PCP Internal Medicine; Visit Provider Internal Medicine Cardiovascular Disease
DX: I34.0 Nonrheumatic mitral (valve) insufficiency (principal)
CPT/HCPCS: 93306; Q9957

== ENCOUNTER → 2022-07-03 13:32 | Outpatient (BNVA) | payer OTHER, SELFPAY | PROVIDERS: PCP Internal Medicine; Referring Provider Internal Medicine; Visit Provider Nurse Practitioner Family | DX: I48.91 Unspecified atrial fibrillation (principal); I34.0 Nonrheumatic mitral (valve) insufficiency; I10 Essential (primary) hypertension; Z98.890 Other specified postprocedural states | CPT/HCPCS: 93005; 99212 ==

== ENCOUNTER 2022-07-25 14:48 | Outpatient (REF) | payer OTHER, SELFPAY ==
--- NOTE | ~2022-07-25 | XR_ITS ---
EXAMINATION: XR ELBOW, LEFT CLINICAL INFORMATION: Left elbow effusion. COMPARISON: None available. TECHNIQUE: AP, lateral, and oblique views of the left elbow. FINDINGS: Bones have normal alignment. No fracture, subluxation or elbow joint effusion. The radiocapitellar and ulnohumeral joint spaces are normal. The soft tissues are swollen over the olecranon. No soft tissue gas or radiopaque foreign body in this area. Small olecranon enthesophyte is present. Also, there is an enthesophyte of the lateral humeral epicondyle. XR/XR elbow LT min 3V IMPRESSION: * No evidence of elbow joint effusion. No acute osseous injury. * The soft tissue swelling dorsal to the olecranon requires clinical correlation. If there was trauma, then this could represent soft tissue edema/bruising. Differential diagnosis, depending upon clinical context, would include olecranon bursitis or cellulitis.
== END 2022-07-25 14:49 | disposition home or self-care (01) ==
LOC: HO.HMGCX 14:48
PROVIDERS: PCP Internal Medicine; Visit Provider Nurse Practitioner Family
DX: M25.422 Effusion, left elbow (principal)
CPT/HCPCS: 73080

== ENCOUNTER → 2022-08-06 08:35 | Outpatient (BNVA) | payer OTHER, SELFPAY | PROVIDERS: PCP Internal Medicine; Visit Provider Physician Assistant | DX: M70.22 Olecranon bursitis, left elbow (principal) | CPT/HCPCS: 99202 ==

== ENCOUNTER 2022-10-06 13:03 | Outpatient (AMB) | payer OTHER, SELFPAY ==
[2022-10-06 13:04] VITALS: BP 100/68; PULSE 76; BMI 32.9
--- NOTE | 2022-10-06 13:04 | A.OFFVIS_ITS ---
Intake Vital Signs 10/06/22 13:04 Height 5 ft 7 in Weight 210 lb 5.136 oz BMI 32.9 BP 100/68 Blood Pressure Location Lt brachial Position Sitting Pulse 76 Pulse Source Monitor Intake Visit Reasons: 3 mth f/u per DC Intake Note: 3 month follow up with EKG. 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 Accompanied by: Spouse Allergies lisinopril Allergy (Intermediate, Verified 10/06/22 13:06) swelling Medication List - Last Reconciled 10/06/22 by Keith Soliman MD albuterol sulfate 90 mcg/actuation (Ventolin HFA) 2 puffs inhalation Q6H PRN apixaban (Eliquis) 5 mg PO BID atorvastatin 40 mg PO QPM baclofen 10 mg PO BEDTIME 90 days cetirizine 10 mg PO DAILY 30 days diclofenac sodium 1% (Arthritis Pain (diclofenac)) 2 grams topical QID PRN docusate sodium (Colace) 100 mg PO DAILY fluticasone furoate-vilanterol 200-25 mcg/dose (Breo Ellipta) 1 inh inhalation DAILY 30 days fluticasone propionate 50 mcg/actuation 1 spray intranasal DAILY furosemide 40 mg PO DAILY gemfibrozil 600 mg PO BID metoprolol tartrate 50 mg PO BID omeprazole 40 mg PO DAILY tramadol 50 mg PO DAILY HPI HPI Comments History of Present Illness Details 61-year-old gentleman here for follow-up. 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 Previously had pulmonary embolism and also has asthma. Main complaint was shortness of breath. We discussed decided to cardioversion. This was successful and he was put on flecainide. He said after cardioversion his dyspnea improved significantly but again came back. He came to the office and was back in atrial fibrillation. He continues to get shortness of breath at this stage. As mentioned he is moderate mitral valve regurgitation. EKG in the office is showing atrial fibrillation. No chest discomfort. He has taking anticoagulation regularly. 10/06/2022: He is here for follow-up. Previously was seen for atrial fibrillation and underwent cardioversion and was started on amiodarone. He was referred for EP evaluation for ablation. He saw Dr. Armendariz for ablation and wanted to discuss with his ex-. He has not gone back to Dr. Armendariz at this stage. While he was at the EP visit he was advised to stop the amiodarone. He has been taking metoprolol and apixaban. He is saying he is short of breath with activity. He is also saying that he has decided to pursue ablation at this stage. He is in atrial fibrillation in the office. Previously when we cardioverted him he felt better and his dyspnea improved significantly. [facility] Medical History Atrial fibrillation Cerebrovascular accident (CVA) determined by clinical assessment Essential (primary) hypertension History of cardioversion History of COVID-19 Low back pain Neck pain Stage 3 chronic kidney disease Surgical History History of cardiac cath History of shoulder surgery Family History Father No problems noted. Mother Hypertension Social History Housing: House Alcohol intake: current Alcohol intake frequency: does not drink Patient Tobacco Use Status: Never used Tobacco e-Cigarette/Vaping Use: Never Used Second Hand Smoke Exposure: No service: Yes (was in [employer]) Current occupational status: disabled Cognitive needs: No Hearing needs: No Vision needs: No Review of Systems Const Denies weakness ENT Denies dizziness Card Denies chest pain, Denies chest pain with activity, Denies syncope, Denies rapid heart rate, Denies pedal edema, Denies edema, Denies leg edema, Denies lightheadedness, Denies palpitations, Denies dyspnea, Denies dyspnea on exertion and Denies orthopnea Resp Denies cough, Denies dyspnea and Denies dyspnea on exertion GI Denies hematochezia and Denies change in stool character Musc Denies abnormal gait, Denies muscle cramps, Denies muscle weakness, Denies numbness, Denies radiating pain into limb and Denies tingling Neuro Denies abnormal gait, Denies dizziness, Denies syncope, Denies numbness, Denies tingling and Denies weakness Endo Denies palpitations Physical Exam Vital Signs: Last Vital Signs Pulse 76 10/06/22 13:04 BP 100/68 10/06/22 13:04 BMI result Body Mass Index 32.9 GENERAL APPEARANCE: in no acute distress, pleasant. NECK: no carotid bruit, no jugular venous distention. SKIN: no suspicious lesions, warm and dry. HEART: irregularly irregular rhythm, holosystolic murmur at apex radiating to the axilla. Systolic murmur aortic area. LUNGS: clear to auscultation bilaterally. ABDOMEN: soft, nontender. EXTREMITIES: no edema. PERIPHERAL PULSES: equal. NEUROLOGIC: No gross deficits, AAO X 3 Office Procedures EKG Details: Atrial fibrillation 76 beats per minute, normal axis, QTC 447 milliseconds. [id number], Complete Assessment & Plan Assessment & Plan (1) GROVE (dyspnea on exertion): Code(s): R06.00 - Dyspnea, unspecified (2) Mitral regurgitation: Code(s): I34.0 - Nonrheumatic mitral (valve) insufficiency (3) Atrial fibrillation: Code(s): I48.91 - Unspecified atrial fibrillation Plan 61-year-old gentleman with dyspnea on exertion and persistent atrial fibrillation. He was cardioverted before and was started on flecainide. Post cardioversion his dyspnea improved but then recurred and he was back in atrial fibrillation. The stage flecainide was stopped he was started on amiodarone and underwent cardioversion again. He was referred for EP evaluation and he went for evaluation at [facility]. During office visit he was noticed to be back in atrial fibrillation. Per patient's report he was advised by EP to stop the amiodarone. He wanted to discuss with his to make up his mind ab out ablation. At this stage is saying that he is agreeable for ablation. I have advised him to continue same medications for now. We will reach out to [facility] to see if he could be set up for a follow-up visit or ablation procedure. He has mitral regurgitation murmur on examination. By echocardiography from March 2022 this was mild mitral valve regurgitation and the mitral valve appears myxomatous. Thank you for allowing me to participate in the care of your patient. Please feel free to contact me if you have any questions. Coding Level of Care Code Est Pt Level 4 (82517) Diagnoses GROVE (dyspnea on exertion) R06.00 Mitral regurgitation I34.0 Atrial fibrillation I48.91 CPT Codes EKG - CPT: 77002-[id number], Complete ([id number])
== END 2022-10-06 13:38 | disposition home or self-care (01) ==
PROVIDERS: PCP Internal Medicine; Referring Provider Internal Medicine; Visit Provider Internal Medicine Cardiovascular Disease
DX: R06.00 Dyspnea, unspecified (principal); I34.0 Nonrheumatic mitral (valve) insufficiency; I48.91 Unspecified atrial fibrillation
CPT/HCPCS: 93010; 99214

== ENCOUNTER → 2022-10-06 13:03 | Outpatient (BNVA) | payer OTHER, SELFPAY | PROVIDERS: PCP Internal Medicine; Referring Provider Internal Medicine; Visit Provider Internal Medicine Cardiovascular Disease | DX: R06.00 Dyspnea, unspecified (principal); I48.91 Unspecified atrial fibrillation; I34.0 Nonrheumatic mitral (valve) insufficiency; I12.9 Hypertensive chronic kidney disease with stage 1 through stage 4 chronic kidney disease, or unspecified chronic kidney disease; N18.30 Chronic kidney disease, stage 3 unspecified; M54.50 Low back pain, unspecified; Z98.890 Other specified postprocedural states | CPT/HCPCS: 93005; 99212 ==

== ENCOUNTER 2022-10-29 16:06 | Outpatient (AMB) | payer OTHER, SELFPAY ==
--- NOTE | 2022-10-29 16:09 | MHC.PC.OV ---
Vital Signs 10/29/22 16:10 Height 5 ft 7 in Weight 209 lb BMI 32.7 BP 122/86 Blood Pressure Location Lt brachial Position Sitting Pulse 88 Pulse Source Pulse Oximeter Temp Source Skin Pulse Oximetry (%) 99 Oxygen Delivery Method Room Air Intake Visit Reasons: medication follow up/Dr. Robison's patient Intake Note: Patient is here to follow up on medication Allergies lisinopril Allergy (Intermediate, Verified 10/29/22 16:35) swelling Medication List - Last Reconciled 10/29/22 by MILIND Morgan albuterol sulfate 90 mcg/actuation (Ventolin HFA) 2 puffs inhalation Q6H PRN apixaban (Eliquis) 5 mg PO BID atorvastatin 40 mg PO QPM baclofen 10 mg PO BEDTIME 90 days cetirizine 10 mg PO DAILY 30 days diclofenac sodium 1% (Arthritis Pain (diclofenac)) 2 grams topical QID PRN docusate sodium (Colace) 100 mg PO DAILY fluticasone furoate-vilanterol 200-25 mcg/dose (Breo Ellipta) 1 inh inhalation DAILY 30 days fluticasone propionate 50 mcg/actuation 1 spray intranasal DAILY furosemide 40 mg PO DAILY gemfibrozil 600 mg PO BID metoprolol tartrate 50 mg PO BID omeprazole 40 mg PO DAILY tramadol 50 mg PO DAILY Tobacco use date assessed: 10/29/22 Fall risk assessment: No Falls in past year Last assessed Fall Risk: 10/29/22 Dental Screening Dental Screen Date: 10/29/22 Did you have a dental visit in the last 12 months?: No Did you have a dental problem in the last 6 months where you did not have access to dental care?: No HPI medication follow up/Dr. Robison's patient HPI Details Patient is a 62-year-old male presents today to follow-up on medications. Patient of Dr. Pool. Medical history significant for hypertension chronic low back pain atrial fibrillation-followed by [facility]-patient reports he will be having cardioversion 12/09/2022, chronic pain syndrome, asthma among others. Patient reports chronic low back pain for many years now he reports that tramadol provides only minimal improvement in the pain, he reports history of injections in his back in the past, he reports that he was told that he has deterioration in bones in his spine and provider could not operate on his back due to this. He reports low back pain that radiate to his right buttock, he also reports neck pain that radiate to his right shoulder. He reports when low back pain is severe he can start with numbness and tingling in his right leg. Patient was encouraged to complete his blood work that was ordered by PCP. [facility] Medical History Atrial fibrillation Cerebrovascular accident (CVA) determined by clinical assessment Essential (primary) hypertension History of cardioversion History of COVID-19 Low back pain Neck pain Stage 3 chronic kidney disease Surgical History History of cardiac cath History of shoulder surgery Family History Father No problems noted. Mother Hypertension Social History Housing: House Alcohol intake: current Alcohol intake frequency: does not drink Patient Tobacco Use Status: Never used Tobacco e-Cigarette/Vaping Use: Never Used Second Hand Smoke Exposure: No service: Yes (was in [employer]) Current occupational status: disabled Cognitive needs: No Hearing needs: No Vision needs: No Questionnaire Thrive Questionnaire Date Thrive assessed: 04/01/22 AUDIT C Alcohol Use Questionnaire (AUDIT-C) 1. How often do you have a drink containing alcohol?: Never 2. How many drinks containing alcohol do you have on a typical day when you are drinking?: 1 or 2 3. How often do you have six or more drinks on one occasion?: Never Total Score: 0 Score Reviewed/Action Taken: No MIR-7 AMB Questionnaire MIR-7 Date MIR - 7 assessed: 04/01/22 Source: Developed by Drs. Erick Hernández, Laureen Ramos, Serafin Morris and colleagues, with an educational marlo from [employer]. Review of Systems Const Denies body aches, Denies chills, Denies fever(s) and Denies headache(s) Eyes Denies change in vision ENT Denies dizziness, Denies otalgia, Denies headache(s), Denies nasal discharge, Denies sinus pain and Denies sore throat Card Denies chest pain, Denies edema, Denies lightheadedness and Denies dyspnea Resp Denies cough, Denies dyspnea and Denies wheezing GI Denies abdominal pain Denies dysuria Musc Reports back pain and Denies myalgias Skin/Breast Denies rash Neuro Denies dizziness and Denies headache(s) Aller/Immun Denies wheezing Physical exam (Primary Care) Vital Signs: Last Vital Signs Pulse 88 10/29/22 16:10 BP 122/86 10/29/22 16:10 Pulse Ox 99 10/29/22 16:10 Oxygen Delivery Method Room Air 10/29/22 16:10 BMI result Body Mass Index 32.7 Tobacco/Smoking Status: Tobacco use Status Tobacco use date assessed 10/29/22 10/29/22 16:10 Patient Tobacco Use Status Never used Tobacco 10/29/22 16:10 e-Cigarette/Vaping Use Never Used 10/29/22 16:10 Thrive Assessment: Date of Thrive Assessment Date Thrive assessed 04/01/22 10/29/22 16:10 Const General: cooperative and no acute distress Orientation/consciousness: patient oriented x3 HENMT Head: Yes normocephalic and Yes atraumatic Mouth: oropharynx normal and moist mucous membranes Throat: Yes posterior oropharynx normal Eyes General: appearance normal, both eyes and all related structures Neck Neck: Yes normal visual inspection, Yes full ROM and Yes no lymphadenopathy Resp Effort & Inspection: normal respiratory effort and able to speak in complete sentences Auscultation: clear to auscultation bilaterally, no crackles, no rales, no rhonchi and no wheezes Cardio Rate: regular rate Rhythm: abnormal rhythm irregularly irregular Heart sounds: Murmur heart sound present GI Auscultation: normal bowel sounds Back/Spine/Pelvis Thoracic/Lumbar Spine: pain with thoraco-lumbar ROM, paraspinal muscle tenderness (Right), No thoracic spinal tenderness and lumbar spinal tenderness Skin General skin exam: no rashes or lesions noted Neuro General: patient oriented x3 Gait exam (Neuro): Normal gait present Extrem General: Yes full ROM and No edema Assessment and Plan Assessment & Plan (1) Asthma: Code(s): J45.909 - Unspecified asthma, uncomplicated Plan: Stable Continue current treatment (2) Atrial fibrillation: Code(s): I48.91 - Unspecified atrial fibrillation Plan: Continue to follow-up with cardiology Continue metoprolol and Eliquis (3) Low back pain: Code(s): M54.5 - Low back pain Plan: Continue tramadol 50 mg daily Continue diclofenac cream p.r.n. Continue baclofen 10 mg at bedtime p.r.n.-educated about drowsiness Referral to pain management for an evaluation and treatment Will obtain lumbar spine x-ray (4) Essential (primary) hypertension: Code(s): I10 - Essential (primary) hypertension Plan: Continue metoprolol, furosemide Continue to follow-up with cardiology Orders: Orders XR lumbar spine 4V min 10/29/22 M54.5 - Low back pain Referrals Pain Management Referral M54.5 - Low back pain Medications: Refilled baclofen 10 mg PO BEDTIME 90 days 90 tabs 1RF tramadol 50 mg PO DAILY 30 tabs 1RF Coding Level of Care Code Est Pt Level 4 (25096) Diagnoses Asthma J45.909 Atrial fibrillation I48.91 Low back pain M54.5 Essential (primary) hypertension I10
[2022-10-29 16:10] VITALS: BP 122/86; PULSE 88; O2SAT 99; BMI 32.7
== END 2022-10-29 16:52 | disposition home or self-care (01) ==
PROVIDERS: PCP Internal Medicine; Visit Provider Nurse Practitioner Family
DX: J45.909 Unspecified asthma, uncomplicated (principal); I48.91 Unspecified atrial fibrillation; M54.50 Low back pain, unspecified; I10 Essential (primary) hypertension
CPT/HCPCS: 99214

== ENCOUNTER 2022-11-05 11:23 | Outpatient (REF) | payer OTHER, SELFPAY ==
[2022-11-05 14:12] LABS: Hematocrit 45.6 % (42.0-52.0); Hemoglobin 15.5 g/dl (14.0-18.0); Mean Corpuscular Hemoglobin 29.9 pg (27.0-33.0); Mean Corpuscular Volume 87.9 fL (80.0-98.0); Mean Platelet Volume 10.5 fL (9.4-12.4); Platelet Count 254 X10*3/uL (160-400); Red Blood Count 5.19 X10*6/uL (4.60-5.80); Red Cell Distribution Width 12.4 % (11.0-16.0); White Blood Count 6.9 X10*3/uL (4.8-10.8)
[2022-11-05 14:33] LABS: Alanine Aminotransferase 52 U/L (0-40); Albumin Level 4.7 g/dL (3.5-5.0); Alkaline Phosphatase 83 U/L (39-117); Anion Gap 16 (12-20); Aspartate Amino Transferase 60 U/L (5-37); Bilirubin Direct 0.2 mg/dL (0.0-0.5); Bilirubin Total 0.6 mg/dL (0.0-1.0); Blood Urea Nitrogen 18 mg/dL (9-16); Calcium 10.3 mg/dL (8.4-10.2); Carbon Dioxide 23 mmol/L (22-29); Chloride 101 mmol/L (96-108); Cholesterol 176 mg/dL (<200); Estimated Glomerular Filt Rate 50; Glucose Random 115 mg/dL (60-115); HDL Cholesterol 45 mg/dL (>40); LDL Cholesterol Calculated 72 mg/dL (<100); Potassium 4.1 mmol/L (3.3-5.1); Sodium 136 mmol/L (135-145); Total Protein 7.9 g/dL (6.5-8.0); Triglycerides 297 mg/dL (<150)
[2022-11-05 14:48] LABS: Thyroid Stimulating Hormone 1.06 uIU/mL (0.32-4.0)
== END 2022-11-05 11:24 | disposition home or self-care (01) ==
LOC: HO.WFDLDS 11:23
PROVIDERS: Visit Provider Internal Medicine
DX: I48.91 Unspecified atrial fibrillation (principal); N18.30 Chronic kidney disease, stage 3 unspecified
CPT/HCPCS: 36415; 80048; 80061; 80076; 84443; 85027

== ENCOUNTER 2022-11-05 11:51 | Outpatient (REF) | payer OTHER, SELFPAY ==
--- NOTE | ~2022-11-05 | XR_ITS ---
EXAMINATION: XR LUMBOSACRAL SPINE WITH OBLIQUES CLINICAL INFORMATION: Low back pain. COMPARISON: None available. TECHNIQUE: AP, both oblique, and lateral views of the lumbar spine. Lateral view of the lumbosacral junction. FINDINGS: Marked degenerative changes are present predominantly at L4-L5 and L5-S1 with severe disc space narrowing and endplate sclerosis and osteophytes. No bony destructive lesions are seen. No fractures or subluxations. Mild degenerative changes are partially imaged in both hips. XR/XR lumbar spine 4V min IMPRESSION: Marked degenerative changes L4-L5 and L5-S1.
== END 2022-11-05 11:52 | disposition home or self-care (01) ==
LOC: HO.HMGCX 11:51
PROVIDERS: PCP Internal Medicine; Visit Provider Nurse Practitioner Family
DX: M54.50 Low back pain, unspecified (principal)
CPT/HCPCS: 72110

== ENCOUNTER 2022-11-07 10:48 | Outpatient (AMB) | payer OTHER, SELFPAY ==
--- NOTE | 2022-11-07 10:56 | A.OFFVIS_ITS ---
Intake Vital Signs 11/07/22 11:00 Height 5 ft 7 in Weight 208 lb 2 oz BMI 32.6 BP 137/85 Blood Pressure Location Lt brachial Position Sitting Respiration 18 Pulse 79 Pulse Source Pulse Oximeter Pulse Oximetry (%) 98 Oxygen Delivery Method Room Air Intake Visit Reasons: Low Back Pain Allergies lisinopril Allergy (Intermediate, Verified 11/07/22 10:54) swelling HPI HPI Comments History of Present Illness Details Andrey is a very pleasant 62-year-old male who presents to the office today for evaluation management of his chronic lower back pain. Patient reports that he has been suffering with this pain for greater than 10 years. 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 Pain is across lower back, right worse than left, with some radiation into the buttocks and thigh. He denies radiation of the pain past the level of the knee. Patient reports the pain is worse with activity, standing, walking and overall general movement. He rates his pain today as 10/10, aching, stabbing, burning. Patient is currently taking tramadol 50 mg once daily and baclofen 10 mg at bedtime. He states these medications lessen his pain and improve his mobility and function but only for a short duration. He has asked for dose escalation from his prescriber but due to his other chronic health conditions a dose escalation is deemed unsafe. Patient has tried physical therapy, last time was about 5 years ago. He was given home exercise program on discharge from physical therapy that he reports he still does. He did not find benefit of physical therapy or current home exercise program. He has had multiple injections in his back more than 10 years ago at [facility] pain management and he is unable to detail further the injections or benefits he received. He has tried [id number] lidocaine patches, topical ointments and NSAIDs all without relief of his pain. Patient denies red flag symptoms including loss of bowel, bladder or saddle anesthesia. Patient had a recent x-ray of his lumbar spine, this was reviewed during his visit today. Results as per below. In terms of muscle damage condition is described as aching, spasming, hot, burning, stabbing, sharp, shooting, throbbing, tingling, pins and needles. Pain is negatively impacting patient's enjoyment of life, general activity, moo d, normal work, recreational activities, relationship, sleep and walking. Of note patient is currently on Eliquis for atrial fibrillation. He has had 2 attempts at cardioversion in the past which were initially successful at returning patient to [facility] but ultimately he ended up back in Afib. He is scheduled for cardiac ablation at [facility] 12/09/22. PENDING SALE TO [facility] Medical History Atrial fibrillation Cerebrovascular accident (CVA) determined by clinical assessment Essential (primary) hypertension History of cardioversion History of COVID-19 Low back pain Neck pain Stage 3 chronic kidney disease Surgical History History of cardiac cath History of shoulder surgery Family History Father No problems noted. Mother Hypertension Social History Housing: House Alcohol intake: current Alcohol intake frequency: does not drink Patient Tobacco Use Status: Never used Tobacco e-Cigarette/Vaping Use: Never Used Second Hand Smoke Exposure: No service: Yes (was in [employer]) Current occupational status: disabled Cognitive needs: No Hearing needs: No Vision needs: No Review of Systems Const All systems reviewed & are unremarkable except as noted in HPI and below Physical Exam Vital Signs: Last Vital Signs Pulse 79 11/07/22 11:00 Resp 18 11/07/22 11:00 BP 137/85 11/07/22 11:00 Pulse Ox 98 11/07/22 11:00 Oxygen Delivery Method Room Air 11/07/22 11:00 BMI result Body Mass Index 32.6 General: awake, alert, oriented. Answers questions appropriately. Fully engaged in examination. Skin: warm, dry, intact HEENT: Normocephalic. Hearing intact. Cardiac: External chest normal in appearance. Respiratory: No cough, audible wheezing or stridor. Abdomen: without gross distension. Neurological: Oriented to person, place, time and situation. Thought process intact. Psychiatric: Appropriate mood and affect. Good judgment and insight. Back/Spine/Pelvis Other: Lumbar exam: Able to stand on bilateral tiptoes and bilateral heels. Able to transition from sit to stand unassisted. Ambulates with bilaterally normal heel strike and toe off Visual inspection without gross abnormality Tender to palpation over lumbar paraspinal muscles Nontender to palpation over PSIS ROM: extension to 10 degrees. flexion to 70 degrees Strength: 5/5 BLE Sensation: intact and symmetric BLE DTR: intact and symmetric Straight leg raises with and without dorsiflexion negative bilaterally Facet loading positive bilaterally, R>L ALICE positive bilaterally for pain increase localized at lumbar spine Gaenslen negative bilaterally SI compression negative bilaterally Results Reviewed Results Reviewed: 11/05/22 FINDINGS: Marked degenerative changes are present predominantly at L4-L5 and L5-S1 with severe disc space narrowing and endplate sclerosis and osteophytes. No bony destructive lesions are seen. No fractures or subluxations. Mild degenerative changes are partially imaged in both hips. IMPRESSION: Marked degenerative changes L4-L5 and L5-S1. Assessment & Plan Assessment & Plan (1) Lumbar facet arthropathy: Code(s): M47.816 - Spondylosis without myelopathy or radiculopathy, lumbar region (2) Chronic pain syndrome: Code(s): G89.4 - Chronic pain syndrome (3) Chronic, continuous use of opioids: Code(s): F11.90 - Opioid use, unspecified, uncomplicated Plan Andrey is a very pleasant 62-year-old male who presents to the office today for evaluation management of his chronic lower back pain. History, physical exam and provocative testing consistent with lumbar facet arthropathy. Patient has failed conservative therapy including nonsteroidal anti-inflammatory medications, opioid medications, muscle relaxers, physical therapy, topical medications and home exercise program. Discussed options for treatment including diagnostic interventional testing, epidural steroid injections, peripheral nerve stimulation with Sprint, RFA and more permanent neuromodulation. Informational pamphlets provided. Patient was advised that our chronic opioid program is currently not accepting new patients. He should continue with his tramadol and baclofen as prescribed. Any requests for dose escalation need to happen with his current prescriber. He is aware that this has been deemed unsafe in the past and dose is unlikely to be increased. Will schedule patient for fluoroscopy guided diagnostic bilateral L3-L4 DR L5 medial branch blocks with local anesthetic. If patient reports positive benefit including decrease in pain with improved mobility and function will plan for right sided sprint peripheral nerve stimulator followed by left sided sprint peripheral nerve stimulator. All questions and concerns have been answered and patient agrees with the plan. Follow up after injections and sooner if needed. Coding Level of Care Code New Pt Level 4 (47916) Diagnoses Lumbar facet arthropathy M47.816 Chronic pain syndrome G89.4 Chronic, continuous use of opioids F11.90
[2022-11-07 11:00] VITALS: BP 137/85; PULSE 79; RESP 18; O2SAT 98; BMI 32.6
== END 2022-11-07 11:23 | disposition home or self-care (01) ==
PROVIDERS: PCP Internal Medicine; Visit Provider Registered Nurse Emergency
DX: G89.4 Chronic pain syndrome (principal); M47.816 Spondylosis without myelopathy or radiculopathy, lumbar region; Z79.891 Long term (current) use of opiate analgesic
CPT/HCPCS: 99204

== ENCOUNTER → 2022-11-07 10:48 | Outpatient (BNVA) | payer OTHER, SELFPAY | PROVIDERS: PCP Internal Medicine; Visit Provider Registered Nurse Emergency ==

== ENCOUNTER 2023-01-05 13:55 | Outpatient (AMB) | payer OTHER, SELFPAY ==
--- NOTE | 2023-01-05 13:56 | A.OFFVIS_ITS ---
Intake Vital Signs 01/05/23 13:57 Height 5 ft 7 in Weight 205 lb 0.478 oz BMI 32.1 BP 124/86 Blood Pressure Location Lt brachial Position Sitting Pulse 66 Pulse Source Pulse Oximeter Pulse Oximetry (%) 96 Oxygen Delivery Method Room Air Intake Visit Reasons: 3 mth f/up Intake Note: Pt presents to the office today for a 3 month follow up. Pt states it took him a while to get his breathing back to normal during Afib but pt states now his breathing is improving. Pt states every once in a while he will get a little pain in his chest but he isnt sure if its from acid reflux. Allergies lisinopril Allergy (Intermediate, Verified 01/05/23 14:07) swelling Medication List - Last Reconciled 01/05/23 by Keith Soliman MD albuterol sulfate 90 mcg/actuation (Ventolin HFA) 2 puffs inhalation Q6H PRN apixaban (Eliquis) 5 mg PO BID atorvastatin 40 mg PO QPM baclofen 10 mg PO BEDTIME 90 days cetirizine 10 mg PO DAILY 30 days diclofenac sodium 1% (Arthritis Pain (diclofenac)) 2 grams topical QID PRN docusate sodium (Colace) 100 mg PO DAILY fluticasone furoate-vilanterol 200-25 mcg/dose (Breo Ellipta) 1 inh inhalation DAILY 30 days fluticasone propionate 50 mcg/actuation 1 spray intranasal DAILY furosemide 40 mg PO DAILY gemfibrozil 600 mg PO BID omeprazole 40 mg PO DAILY sotalol 80 mg PO BID tramadol 50 mg PO DAILY HPI HPI Comments History of Present Illness Details 62-year-old gentleman here for follow-up . 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 Previously had pulmonary embolism and also has asthma. Main complaint was shortness of breath. We discussed decided to cardioversion. This was successful and he was put on flecainide. He said after cardioversion his dyspnea improved significantly but again came back. He came to the office and was back in atrial fibrillation. He continues to get shortness of breath at this stage. As mentioned he is moderate mitral valve regurgitation. EKG in the office is showing atrial fibrillation. No chest discomfort. He has taking anticoagulation regularly. 10/06/2022: He is here for follow-up. Elieser sharif was seen for atrial fibrillation and underwent cardioversion and was started on amiodarone. He was referred for EP evaluation for ablation. He saw Dr. Armendariz for ablation and wanted to discuss with his ex-. He has not gone back to Dr. Armendariz at this stage. While he was at the EP visit he was advised to stop the amiodarone. He has been taking metoprolol and apixaban. He is saying he is short of breath with activity. He is also saying that he has decided to pursue ablation at this stage. He is in atrial fibrillation in the office. Previously when we cardioverted him he felt better and his dyspnea improved significantly. 01/05/2023: He returns for follow-up. Jonn feliciano underwent ablation and is currently taking sotalol 80 mg twice a day. He is in sinus rhythm. Denying any chest discomfort or shortness of breath. He is saying that he definitely feels better and is more energetic at this point. Taking medications regularly. No bleeding concerns. [facility] Medical History History of cardioversion History of COVID-19 Stage 3 chronic kidney disease Cerebrovascular accident (CVA) determined by clinical assessment Atrial fibrillation Low back pain Neck pain Essential (primary) hypertension Surgical History History of cardiac cath History of shoulder surgery Family History Father No problems noted. Mother Hypertension Social History Housing: House Alcohol intake: current Alcohol intake frequency: does not drink Patient Tobacco Use Status: Never used Tobacco e-Cigarette/Vaping Use: Never Used Second Hand Smoke Exposure: No service: Yes (was in [employer]) Current occupational status: disabled Cognitive needs: No Hearing needs: No Vision needs: No Physical Exam Vital Signs: Last Vital Signs Pulse 66 01/05/23 13:57 BP 124/86 01/05/23 13:57 Pulse Ox 96 01/05/23 13:57 Oxygen Delivery Method Room Air 01/05/23 13:57 BMI result Body Mass Index 32.1 GENERAL APPEARANCE: in no acute distress, pleasant. NECK: no carotid bruit, no jugular venous distention. SKIN: no suspicious lesions, warm and dry. HEART: Regular rate and rhythm. Holosystolic murmur at apex radiating to the axilla. Systolic murmur aortic area. LUNGS: clear to auscultation bilaterally. ABDOMEN: soft, nontender. EXTREMITIES: no edema. PERIPHERAL PULSES: equal. NEUROLOGIC: No gross deficits, AAO X 3 Assessment & Plan Assessment & Plan (1) Essential (primary) hypertension: Code(s): I10 - Essential (primary) hypertension (2) Atrial fibrillation: Code(s): I48.91 - Unspecified atrial fibrillation (3) Mitral regurgitation: Code(s): I34.0 - Nonrheumatic mitral (valve) insufficiency Plan Pleasant 62-year-old gentleman who is here for follow-up. He had persistent atrial fibrillation and previously had cardioversion and was on amiodarone at 1 stage. Subsequent to that he was referred to electrophysiology and underwent ablation. His amiodarone was stopped before the ablation and he was started on sotalol. He is currently taking 80 mg twice a day sotalol. He is in sinus r hythm and is feeling better. Not in heart failure. He has mitral valve regurgitation, he has mitral valve prolapse and by echocardiography from March 2022 he has mild mitral valve regurgitation. Overall clinically stable at now. He will see us back in few months. Medications: New sotalol 80 mg PO BID 120 tabs 3RF Coding Level of Care Code Est Pt Level 4 (35566) Diagnoses Essential (primary) hypertension I10 Atrial fibrillation I48.91 Mitral regurgitation I34.0
[2023-01-05 13:57] VITALS: BP 124/86; PULSE 66; O2SAT 96; BMI 32.1
== END 2023-01-05 15:05 | disposition home or self-care (01) ==
PROVIDERS: PCP Internal Medicine; Visit Provider Internal Medicine Cardiovascular Disease
DX: I10 Essential (primary) hypertension (principal); I48.91 Unspecified atrial fibrillation; I34.0 Nonrheumatic mitral (valve) insufficiency
CPT/HCPCS: 99214

== ENCOUNTER → 2023-01-05 13:55 | Outpatient (BNVA) | payer OTHER, SELFPAY | PROVIDERS: PCP Internal Medicine; Visit Provider Internal Medicine Cardiovascular Disease | DX: I48.91 Unspecified atrial fibrillation (principal); I10 Essential (primary) hypertension; I34.0 Nonrheumatic mitral (valve) insufficiency | CPT/HCPCS: 99212 ==

== ENCOUNTER 2023-02-18 11:18 | Outpatient (AMB) | payer OTHER, SELFPAY ==
[2023-02-18 11:22] VITALS: BP 134/66; PULSE 65; O2SAT 98; BMI 32.1
--- NOTE | 2023-02-18 11:22 | MHC.PC.OV ---
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 per policy Accompanied by: Self / Same As Patient Allergies lisinopril Allergy (Intermediate, Verified 02/18/23 11:22) swelling Medication List - Last Reconciled 02/18/23 by ROSINA Dyson albuterol sulfate 90 mcg/actuation (Ventolin HFA) 2 puffs inhalation Q6H PRN apixaban (Eliquis) 5 mg PO BID atorvastatin 40 mg PO QPM baclofen 10 mg PO BEDTIME 90 days cetirizine 10 mg PO DAILY 30 days diclofenac sodium 1% (Arthritis Pain (diclofenac)) 2 grams topical QID PRN docusate sodium (Colace) 100 mg PO DAILY fluticasone furoate-vilanterol 200-25 mcg/dose (Breo Ellipta) 1 inh inhalation DAILY 30 days fluticasone propionate 50 mcg/actuation 1 spray intranasal DAILY furosemide 40 mg PO DAILY gemfibrozil 600 mg PO BID omeprazole 40 mg PO DAILY prednisone 10 mg PO DIRECTED sotalol 80 mg PO BID tramadol 50 mg PO DAILY Tobacco use date assessed: 10/29/22 Fall risk assessment: No Falls in past year Last assessed Fall Risk: 02/18/23 Dental Screening Dental Screen Date: 02/18/23 Did you have a dental visit in the last 12 months?: No Did you have a dental problem in the last 6 months where you did not have access to dental care?: No Was dental information given to patient?: Patient has dentist HPI HPI Comments History of Present Illness Details 62-year-old male with history of hypertension, history longstanding persistent atrial fibrillation, history CVA among others presents to the office for hospital discharge follow-up. The patient was admitted to [facility] from 12/09-12/10 for atrial fibrillation ablation and sotalol loading. AFib lesion was successful with pulmonary vein isolation and left posterior wall isolation and he was subsequently started on sotalol with close monitoring of QTC. He successfully converted to and maintained normal sinus rhythm with full resolution of symptoms including shortness of breath, palpitations, chest pain. He was discharged home on sotalol 80 mg twice daily as well as Protonix 40 mg daily x1 month. He has followed up with cardiology. His main concern today is R shoulder pain that has been ongoing x2 months. Describes a constant sharp pain that is worse when sitting up or driving. Describes a click in the shoulder. Feels best when laying flat on back. NO weakness, paresthesias. Denies specific injury. Using tramadol, lidocaine patches, and cream . Rated 8/10. [facility] Medical History History of cardioversion History of COVID-19 Stage 3 chronic kidney disease Cerebrovascular accident (CVA) determined by clinical assessment Atrial fibrillation Low back pain Neck pain Essential (primary) hypertension Surgical History (Updated 02/24/23 @ 22:04 by ROSINA Dyson) History of radiofrequency ablation procedure for cardiac arrhythmia History of cardiac cath History of shoulder surgery Family History Father No problems noted. Mother Hypertension Social History Housing: House Alcohol intake: current Alcohol intake frequency: does not drink Patient Tobacco Use Status: Never used Tobacco e-Cigarette/Vaping Use: Never Used Second Hand Smoke Exposure: No service: Yes (was in [employer]) Current occupational status: disabled Cognitive needs: No Hearing needs: No Vision needs: No Questionnaire Thrive Questionnaire Date Thrive assessed: 04/01/22 MIR-7 AMB Questionnaire MIR-7 Date MIR - 7 assessed: 04/01/22 Source: Developed by Drs. Erick Hernández, Laureen Ramos, Serafin Morris and colleagues, with an educational marlo from [employer]. Review of Systems Const All systems reviewed & are unremarkable except as noted in HPI and below Physical exam (Primary Care) Vital Signs: Last Vital Signs Pulse 65 02/18/23 11:22 BP 134/66 02/18/23 11:22 Pulse Ox 98 02/18/23 11:22 Oxygen Delivery Method Room Air 02/18/23 11:22 BMI result Body Mass Index 32.1 Tobacco/Smoking Status: Tobacco use Status Tobacco use date assessed 10/29/22 02/18/23 11:25 Patient Tobacco Use Status Never used Tobacco 02/18/23 11:25 e-Cigarette/Vaping Use Never Used 02/18/23 11:25 Thrive Assessment: Date of Thrive Assessment Date Thrive assessed 04/01/22 02/18/23 11:25 Const Other: Constitutional - Awake and Alert, No apparent distress Eyes - PERRLA, EOMI Neck - NO midline ttp, R sided paraspinal ttp into upper trapezius Cardiovascular - S1S2, RRR, No edema Respiratory - Normal lung expansion, Normal respiratory effort, No respiratory distress, CTA bilaterally Extremities - no calf tenderness bilaterally, no swelling Musculoskeletal - Normal inspection. R shoulder- no effusion, erythema, warmth, swelling. TTP in anterior shoulder and AC joint. Full ROM Skin - Warm/Dry Neurological - Alert & oriented x3, 5/5 strength BUE Psychological - Appropriate affect Results Reviewed Results Reviewed: cbc, bmp, ekg, h&p, discharge summary, cardiology office note Assessment and Plan Assessment & Plan (1) Right shoulder pain: Code(s): M25.511 - Pain in right shoulder Plan: Etiology unclear at this time. No weakness, paresthesias. Possible component of cerivcal radiculopathy given neck pain but distribution of pain is not consistent. Xray R shoulder ordered. He is referred to physical therapy for rehabilitation. Can continue taking tramadol as prescribed by pcp. Trial prednisone taper 40mg x 3 days, 30mg x 3 days, 20mg x 3 days, 10mg x 3 days. Follow up with PCP (2) Atrial fibrillation: Code(s): I48.91 - Unspecified atrial fibrillation Plan: Successful cardiac ablation. Feeling much better, increased energy, asymptomatic. No bleeding concerns. RRR on exam. COntinue sotalol 80mg BID. Continue eliquis bid. FOllow up with cardiology as scheduled. Orders: Orders XR shoulder RT min 2V 02/18/23 M25.511 - Pain in right shoulder PT Evaluation and Treatment 02/18/23 M25.511 - Pain in right shoulder Medications: New prednisone see taper instructions 10 mg PO DIRECTED 30 tabs 0RF Coding Level of Care Code Est Pt Level 5 (14696) Diagnoses Right shoulder pain M25.511 Atrial fibrillation I48.91 Time Spent (min) 42 Comment time spent reviewing above, interview/exam, documentation
== END 2023-02-18 12:00 | disposition home or self-care (01) ==
PROVIDERS: PCP Internal Medicine; Visit Provider Physician Assistant
DX: M25.511 Pain in right shoulder (principal); I48.91 Unspecified atrial fibrillation
CPT/HCPCS: 99215

== ENCOUNTER 2023-02-18 12:04 | Outpatient (REF) | payer OTHER, SELFPAY | END 2023-02-18 12:05 | disposition home or self-care (01) | LOC: HO.XRAY 12:04 | PROVIDERS: Visit Provider Physician Assistant | DX: M25.511 Pain in right shoulder (principal) | CPT/HCPCS: 73030 ==

== ENCOUNTER 2023-05-06 10:35 | Outpatient (AMB) | payer OTHER, SELFPAY ==
[2023-05-06 10:37] VITALS: BP 130/70; PULSE 66; BMI 32.2
--- NOTE | 2023-05-06 10:37 | A.OFFVIS_ITS ---
Intake Vital Signs 05/06/23 10:37 Height 5 ft 7 in Weight 205 lb 14.588 oz BMI 32.2 BP 130/70 Blood Pressure Location Rt brachial Position Sitting Pulse 66 Pulse Source Pulse Oximeter Intake Visit Reasons: 4 month follow up Intake Note: pt its here for a 4 mnth f/up/pt states that he its doing. some shortness of breath walking long distance. 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: No Accompanied by: Self / Same As Patient Allergies lisinopril Allergy (Intermediate, Verified 02/18/23 11:22) swelling Medication List - Last Reconciled 05/06/23 by Keith Soliman MD albuterol sulfate 90 mcg/actuation (Ventolin HFA) 2 puffs inhalation Q6H PRN apixaban (Eliquis) 5 mg PO BID atorvastatin 40 mg PO QPM baclofen 10 mg PO BEDTIME 90 days cetirizine 10 mg PO DAILY 30 days diclofenac sodium 1% (Arthritis Pain (diclofenac)) 2 grams topical QID PRN docusate sodium (Colace) 100 mg PO DAILY fluticasone propionate 50 mcg/actuation 1 spray intranasal DAILY furosemide 40 mg PO DAILY omeprazole 40 mg PO DAILY prednisone 10 mg PO DIRECTED sotalol 80 mg PO BID tramadol 50 mg PO DAILY HPI HPI Comments History of Present Illness Details 62-year-old gentleman here for follow-up . 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 Previously had pulmonary embolism and also has asthma. Main complaint was shortness of breath. We discussed decided to cardioversion. This was successful and he was put on flecainide. He said after cardioversion his dyspnea improved significantly but again came back. He came to the office and was back in atrial fibrillation. He continues to get shortness of breath at this stage. As mentioned he is moderate mitral valve regurgitation. EKG in the office is showing atrial fibrillation. No chest discomfort. He has taking anticoagulation regularly. 10/06/2022: He is here for follow-up. Elieser sharif was seen for atrial fibrillation and underwent cardioversion and was started on amiodarone. He was referred for EP evaluation for ablation. He saw Dr. Armendariz for ablation and wanted to discuss with his ex-. He has not gone back to Dr. Armendariz at this stage. While he was at the EP visit he was advised to stop the amiodarone. He has been taking metoprolol and apixaban. He is saying he is short of breath with activity. He is also saying that he has decided to pursue ablation at this stage. He is in atrial fibrillation in the office. Previously when we cardioverted him he felt better and his dyspnea improved significantly. 01/05/2023: He returns for follow-up. Jonn feliciano underwent ablation and is currently taking sotalol 80 mg twice a day. He is in sinus rhythm. Denying any chest discomfort or shortness of breath. He is saying that he definitely feels better and is more energetic at this point. Taking medications regularly. No bleeding concerns. 05/06/2023: He returns for follow-up. De nying any significant dyspnea. No chest discomfort. No palpitations. He is on sotalol for atrial fibrillation. He is status post ablation at this point. He has mild MR with myxomatous mitral valve. [facility] Medical History History of cardioversion History of COVID-19 Stage 3 chronic kidney disease Cerebrovascular accident (CVA) determined by clinical assessment Atrial fibrillation Low back pain Neck pain Essential (primary) hypertension Surgical History History of radiofrequency ablation procedure for cardiac arrhythmia History of cardiac cath History of shoulder surgery Family History Father No problems noted. Mother Hypertension Social History Housing: House Alcohol intake: current Alcohol intake frequency: does not drink Patient Tobacco Use Status: Never used Tobacco e-Cigarette/Vaping Use: Never Used Second Hand Smoke Exposure: No service: Yes (was in [employer]) Current occupational status: disabled Cognitive needs: No Hearing needs: No Vision needs: No Review of Systems Const Denies chills, Denies fatigue, Denies fever(s), Denies frequent falls, Denies weakness, Denies weight gain and Denies weight loss ENT Denies dizziness Card Denies chest pain, Denies leg edema, Denies lightheadedness, Denies palpitations, Denies dyspnea and Denies dyspnea on exertion Resp Denies cough, Denies dyspnea and Denies dyspnea on exertion GI Denies hematochezia Musc Denies abnormal gait, Denies muscle weakness, Denies numbness, Denies radiating pain into limb and Denies tingling Neuro Denies abnormal gait, Denies dizziness, Denies frequent falls, Denies numbness, Denies tingling and Denies weakness Endo Denies fatigue and Denies palpitations Physical Exam Vital Signs: Last Vital Signs Pulse 66 05/06/23 10:37 BP 130/70 05/06/23 10:37 BMI result Body Mass Index 32.2 GENERAL APPEARANCE: in no acute distress, pleasant. NECK: no carotid bruit, no jugular venous distention. SKIN: no suspicious lesions, warm and dry. HEART: Regular rate and rhythm. Holosystolic murmur at apex radiating to the axilla. Systolic murmur aortic area. LUNGS: clear to auscultation bilaterally. ABDOMEN: soft, nontender. EXTREMITIES: no edema. PERIPHERAL PULSES: equal. NEUROLOGIC: No gross deficits, AAO X 3 Assessment & Plan Assessment & Plan (1) Atrial fibrillation: Code(s): I48.91 - Unspecified atrial fibrillation (2) Mitral regurgitation: Code(s): I34.0 - Nonrheumatic mitral (valve) insufficiency Plan [age] year gentleman who is here for follow-up. He has myxomatous mitral valve with mild mitral regurgitation based on echocardiography from 2021. He has severely dilated left atrium with atrial fibrillation and was previously cardioverted and eventually underwent ablation. He was taken off the amiodarone and was changed to sotalol. Since then he has been doing well and has been in sinus rhythm. He is on apixaban for anticoagulation. Clinically stable at this point. We will repeat echocardiography to reassess the mitral valve. Follow-up in 6 months. Thank you for allowing me to participate in the care of your patient. Please feel free to contact me if you have any questions. Orders: Orders CA echo transthorac w con Today I34.0 - Nonrheumatic mitral (valve) insufficiency Coding Level of Care Code Est Pt Level 4 (09892) Diagnoses Atrial fibrillation I48.91 Mitral regurgitation I34.0
== END 2023-05-06 10:53 | disposition home or self-care (01) ==
PROVIDERS: PCP Internal Medicine; Visit Provider Internal Medicine Cardiovascular Disease
DX: I48.91 Unspecified atrial fibrillation (principal); I34.0 Nonrheumatic mitral (valve) insufficiency
CPT/HCPCS: 99214

== ENCOUNTER → 2023-05-06 10:35 | Outpatient (BNVA) | payer OTHER, SELFPAY | PROVIDERS: PCP Internal Medicine; Visit Provider Internal Medicine Cardiovascular Disease | DX: I34.0 Nonrheumatic mitral (valve) insufficiency (principal); I48.91 Unspecified atrial fibrillation; Z79.899 Other long term (current) drug therapy | CPT/HCPCS: 99212 ==

== ENCOUNTER → 2023-06-01 07:44 | Outpatient (REF) | payer OTHER, SELFPAY ==
--- NOTE | 2023-06-01 07:47 | CA_ITS ---
Transthoracic Echocardiogram Patient (Last, First, Middle): Andrey Chao A Gender: Male Date of : 1960 Age: 62 Procedure Date: 06/01/2023 Procedure Type: Transthoracic Echocardiogram Location: OP Height: 170.18 cm Weight: 95.26 kg BSA: 2.06 m2 Heart Rate: bpm BP: 124 / 80 mmHg Television Anchor: Referring MD: Keith Soliman MD Appeals Court Associate Justice: Keith Soliman MD Symptoms: I34.0 - Nonrheumatic mitral (valve) insufficiency Study Quality: Good ECG Rhythm: Sinus Conclusions: - Normal left ventricular size and systolic function. There is mildly increased left ventricular wall thickness. The visually estimated ejection fraction is between 55-60%. - Normal right ventricular cavity size and systolic function. - The left atrium is severely dilated. - There is mild to moderate mitral valve regurgitation. - The right ventricular systolic pressure is 41 mmHg. Normal right atrial pressure. Mild pulmonary hypertension is present. - There is mild dilatation of the ascending aorta measuring 3.40 cm. Findings Left Ventricle Normal left ventricular size and systolic function. There is mildly increased left ventricular wall thickness. The visually estimated ejection fraction is between 55-60%. There is no evidence of regional wall motion abnormalities. Abnormal diastolic function is noted. Spectral Doppler is indicative of a pseudonormal filling pattern. Elevated filling pressures. Right Ventricle Normal right ventricular cavity size and systolic function. Atria The left atrium is severely dilated. Aortic Valve Normal aortic valve structure and function. There is no aortic valve stenosis. There is no aortic valve regurgitation. Mitral Valve The mitral valve appears myxomatous. There is mild to moderate mitral valve regurgitation. The mitral regurgitation jet is directed anteriorly. There is no mitral valve stenosis. Pulmonic Valve The pulmonic valve is normal. There is no pulmonic valve regurgitation. Tricuspid Valve Normal tricuspid valve structure. There is no tricuspid valve regurgitation. The right ventricular systolic pressure is 41 mmHg. Normal right atrial pressure. Mild pulmonary hypertension is present. Great Vessels There is mild dilatation of the ascending aorta measuring 3.40 cm. The visualized portions of the pulmonary artery and branches are normal. Venous The inferior vena cava is normal in size and collapses greater than 50% with inspiration. Pericardium/Pleural There is no evidence of pericardial effusion. Prior Study Comparison No significant change compared to prior study dated: 03/31/2022. Measurements 2D Linear Measurements IVSd: 1.23 0.6-0.9/0.6-1.0 cm LVIDd: 4.91 3.9-5.3/4.2-5.9 cm LVIDd Index: 2.38 2.4-3.2/2.2-3.1 cm/m2 LVIDs: 3.38 2.0-3.6 cm LVPWd: 1.23 0.7-1.1 cm Ao Root: 3.00 2.1-3.5 cm LA Diam: 5.20 2.7-3.8/3.0-4.0 cm LAIDs Index: 2.52 1.5-2.3 cm/m2 LV Mass: 293.22 67-162/88-224 g LV Mass Index: 142.34 43-95/49-115 g/m2 LVOT Diam: 2.10 3.0+(-)1.3 cm 2D Systolic Function EF 4C: 59.80 >55% EF 2C: 58.30 >55% EF BiP: 58.10 >55% Mitral Valve MV Pk E: 0.97 MV PK A: 0.68 MV Decel Time: 146.00 E/A: 1.40 E'Lateral: 4.79 E'Medial: 3.26 E/E' Med: 29.70 E/E' Lat: 20.20 PHT: 43.00 MVA PHT: 5.12 Decel [place]: 6.62 Aortic Valve AoV Pk Sabino: 1.29 AoV Mn Sabino: 0.83 AoV VTI: 0.30 AoV Pk Grad: 7.00 Aov Mn Grad: 3.00 BRIAN Cont.VTI: 2.11 LVOT LVOT Pk Sabino: 0.80 LVOT Mn Sabino: 0.50 LVOT VTI: 0.18 LVOT Pk Grad: 3.00 LVOT Mn Grad: 1.00 LVOT Diam: 2.10 LVOT Area: 3.46 Diastolic Function MV Pk E: 0.97 MV Pk A: 0.68 E/A: 1.40 E'Medial: 3.26 E/E' Med: 29.70 E' Laterial: 4.79 E/E' Lat: 20.20 Right Ventricle TAPSE (mm): 24.00 TVS' Sabino: 15.00 Tricuspid Valve TR Pk Sabino: 3.22 TR Pk Grad: 41.00 RVSP: 41.00 Great Vessels Aorta Ao Root-2D: 3.00 2.0-3.7 cm Ao Asc: 3.40 2.1-3.4 cm Pulmonary Valve PV Pk Sabino: 0.92 Peak PV Grad: 3.00 Updated in Other Vendor System with Status of Final Keith Soliman MD electronically signed on 06/01/2023 1:11:29 PM with status of Final
== END ==
LOC: HO.CARD 07:44
PROVIDERS: PCP Internal Medicine; Visit Provider Internal Medicine Cardiovascular Disease
DX: I34.0 Nonrheumatic mitral (valve) insufficiency (principal)
CPT/HCPCS: 93306

== ENCOUNTER → 2023-06-01 07:47 | Outpatient (BNV) | payer OTHER, SELFPAY | PROVIDERS: PCP Internal Medicine; Visit Provider Internal Medicine Cardiovascular Disease | DX: I34.0 Nonrheumatic mitral (valve) insufficiency (principal) | CPT/HCPCS: 93306 ==

== ENCOUNTER 2023-07-02 13:32 | Outpatient (AMB) | payer OTHER, SELFPAY ==
--- NOTE | 2023-07-02 13:33 | MHC.PC.OV ---
Vital Signs 07/02/23 13:36 Height 5 ft 7 in Weight 206 lb 6 oz BMI 32.3 BP 130/74 Blood Pressure Location Lt brachial Position Sitting Pulse 65 Pulse Source Pulse Oximeter Pulse Oximetry (%) 95 Oxygen Delivery Method Room Air Intake Visit Reasons: f/u Intake Note: Patient is here to follow up on Chronic pin, Afib, CKD, HTN . Die Sinker Required: No Monitoring And Evaluation Advisor: Not Required per policy Accompanied by: Self / Same As Patient Allergies lisinopril Allergy (Intermediate, Verified 07/02/23 13:35) swelling Tobacco use date assessed: 07/02/23 Fall risk assessment: No Falls in past year Last assessed Fall Risk: 07/02/23 Dental Screening Dental Screen Date: 07/02/23 Did you have a dental visit in the last 12 months?: No Did you have a dental problem in the last 6 months where you did not have access to dental care?: No Was dental information given to patient?: No HPI f/u HPI Details 62-year-old male presents to the office to discuss his chronic medical conditions. Patient is reporting decreased hearing from the right ear. He has to crank the TV up high for him to hear. He also has difficulty hearing on the telephone. His left ear is already damaged. Patient has been in sinus rhythm after having been successfully converted. Continues to be on oral anticoagulants and sotalol. Continues to have pain in the lower back which limits his potential to exercise. The back pain is present every day despite the treatment with tramadol. Patient had gone to Pain Management but did not follow-up on the procedures suggested. Compliant with medications and not reporting any side effects. Able to function and do activities of daily living. The pain in the back is affecting his quality of life. [facility] Medical History (Updated 07/02/23 @ 14:30 by Josué Pool MD) Hard of hearing History of cardioversion History of COVID-19 Stage 3 chronic kidney disease Cerebrovascular accident (CVA) determined by clinical assessment Low back pain Neck pain Essential (primary) hypertension Surgical History History of radiofrequency ablation procedure for cardiac arrhythmia History of cardiac cath History of shoulder surgery Family History Father No problems noted. 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 1. Little interest or pleasure in doing things: not at all 2. Feeling down, depressed, or hopeless: not at all 3. Trouble falling or staying asleep, or sleeping too much: not at all 4. Feeling tired or having little energy: not at all 5. Poor appetite or overeating: not at all 6. Feeling bad about yourself - or that you are a failure or have let yourself or your family down: not at all 7. Trouble concentrating on things, such as reading the newspaper or watching television: not at all 8. Moving or speaking so slowly that other people could have noticed. Or the opposite - being so fidgety or restless that you have been moving around a lot more than usual: not at all 9. Thoughts that you would be better off or of hurting yourself in some way: not at all Total score: 0 Depression Screening Interpretation: Negative Depression Screening Done: Yes Source: Developed by Drs. Erick Hernández, Laureen Ramos, Serafin Morris and colleagues, with an educational marlo from [employer]. Thrive Questionnaire Date Thrive assessed: 07/02/23 I am a: Patient What is your living situation today?: I have a steady place to live Within the past 12 months, did the food you bought not last and you didn't have the money to get more?: Never true Within the past 12 months, did you worry whether your food would run out before you got money to buy more?: Never true Do you have trouble paying for medicines?: No Do you have trouble getting transportation to medical appointments?: No Do you have trouble paying your heating and electricity bill?: No Do you have trouble taking care of your child, family member or friend?: No Do you have trouble with day-to-day activities such as bathing, preparing meals, shopping, managing finances, etc.?: No Are you currently unemployed and looking for a job?: No Are you interested in more education?: No Currently or been in a relationship where the following occur: no concerns reported THRIVE Score: 0 AUDIT C Alcohol Use Questionnaire (AUDIT-C) 1. How often do you have a drink containing alcohol?: Never Total Score: 0 MIR-7 AMB Questionnaire MIR-7 Date MIR - 7 assessed: 07/02/23 Feeling nervous, anxious, or on edge: 0 = Not at all Not being able to stop or control worryin = Not at all Worrying too much about different things: 0 = Not at all Trouble relaxin = Not at all Being so restless that it is hard to sit still: 0 = Not at all Becoming easily annoyed or irritable: 0 = Not at all Feeling afraid as if something awful might happen: 0 = Not at all Total MIR-7 score (0-4 normal; 5-9 mild; 10-14 moderate; 15-21 severe): 0 Source: Developed by Drs. Erick Hernández, Laureen Ramos, Serafin Morris and colleagues, with an educational marlo from [employer]. Physical exam (Primary Care) Vital Signs: Last Vital Signs Pulse 65 07/02/23 13:36 BP 130/74 07/02/23 13:36 Pulse Ox 95 07/02/23 13:36 Oxygen Delivery Method Room Air 07/02/23 13:36 BMI result Body Mass Index 32.3 BMI Assessment/Plan discussion: High (1 lb per week weight loss suggested.) BMI High, discussed plan: lifestyle, weight reduction, dietary and physical activity Tobacco/Smoking Status: Tobacco use Status Tobacco use date assessed 07/02/23 07/02/23 13:38 Patient Tobacco Use Status Never used Tobacco 07/02/23 13:41 e-Cigarette/Vaping Use Never Used 07/02/23 13:41 PHQ-9: PHQ-9 Score PHQ-9: Total score 0 07/02/23 13:38 Depression Screening Interpretation: Negative Thrive Assessment: Date of Thrive Assessment Date Thrive assessed 07/02/23 07/02/23 13:38 Currently or been in a relationship where the following occur: no concerns reported Assessment and Plan Assessment & Plan (1) Hard of hearing: Code(s): H91.90 - Unspecified hearing loss, unspecified ear Plan: Audiology consult requested. (2) Chronic pain syndrome: Code(s): G89.4 - Chronic pain syndrome Plan: Treatment with tramadol and baclofen. More NSAIDs can not be added due to risk of bleeding. (3) Mitral regurgitation: Code(s): I34.0 - Nonrheumatic mitral (valve) insufficiency Plan: Condition is stable. Patient has an echocardiogram pending. (4) Atrial fibrillation: Code(s): I48.91 - Unspecified atrial fibrillation Plan: Patient is now in sinus rhythm. Atrial fibrillation is controlled with sotalol and Eliquis. (5) Stage 3 chronic kidney disease: Code(s): N18.30 - Chronic kidney disease, stage 3 unspecified Plan: Condition is stable (6) Essential (primary) hypertension: Code(s): I10 - Essential (primary) hypertension Plan: Blood pressure is in range. Orders: Referrals Audiology Referral H91.90 - Unspecified hearing loss, unspecified ear Coding Level of Care Code Est Pt Level 4 (28096) Diagnoses Hard of hearing H91.90 Chronic pain syndrome G89.4 Mitral regurgitation I34.0 Atrial fibrillation I48.91 Stage 3 chronic kidney disease N18.30 Essential (primary) hypertension I10
[2023-07-02 13:36] VITALS: BP 130/74; PULSE 65; O2SAT 95; BMI 32.3
== END 2023-07-02 14:06 | disposition home or self-care (01) ==
PROVIDERS: PCP Internal Medicine; Visit Provider Internal Medicine
DX: I12.9 Hypertensive chronic kidney disease with stage 1 through stage 4 chronic kidney disease, or unspecified chronic kidney disease (principal); H91.91 Unspecified hearing loss, right ear; I48.91 Unspecified atrial fibrillation; N18.30 Chronic kidney disease, stage 3 unspecified; G89.4 Chronic pain syndrome; I34.0 Nonrheumatic mitral (valve) insufficiency
CPT/HCPCS: 99214

== ENCOUNTER 2023-10-14 10:34 | Outpatient (AMB) | payer OTHER, SELFPAY ==
[2023-10-14 10:39] VITALS: BP 134/78; PULSE 97; O2SAT 95; BMI 32.2
--- NOTE | 2023-10-14 10:39 | A.OFFPC_ITS ---
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 Accompanied by: Self / Same As Patient Allergies lisinopril Allergy (Intermediate, Verified 10/16/23 08:17) swelling Medication List - Last Reconciled 10/16/23 by Josué Pool MD albuterol sulfate 90 mcg/actuation (Ventolin HFA) 2 puffs inhalation Q6H PRN apixaban (Eliquis) 5 mg PO BID atorvastatin 40 mg PO QPM baclofen 10 mg PO BEDTIME 90 days cetirizine 10 mg PO DAILY 30 days diclofenac sodium 1% (Arthritis Pain (diclofenac)) 2 grams topical QID PRN docusate sodium (Colace) 100 mg PO DAILY fluticasone propionate 50 mcg/actuation 1 spray intranasal DAILY furosemide 40 mg PO DAILY omeprazole 40 mg PO DAILY sotalol 80 mg PO BID tramadol 50 mg PO DAILY Tobacco use date assessed: 10/14/23 Fall risk assessment: No Falls in past year Last assessed Fall Risk: 10/14/23 Dental Screening Dental Screen Date: 10/14/23 Did you have a dental visit in the last 12 months?: No Did you have a dental problem in the last 6 months where you did not have access to dental care?: No Was dental information given to patient?: Patient has dentist HPI 3mth f/u HPI Details 62-year-old male presents to the office to discuss his chronic medical conditions. Patient is at baseline state of health. Able to function and do activities of daily living. Patient believes the pain in the hip has worsened. He is still walking without assistance. Taking his medications as directed. [facility] Medical History Hard of hearing History of cardioversion History of COVID-19 Stage 3 chronic kidney disease Cerebrovascular accident (CVA) determined by clinical assessment Low back pain Neck pain Essential (primary) hypertension Surgical History History of radiofrequency ablation procedure for cardiac arrhythmia History of cardiac cath History of shoulder surgery Family History Father No problems noted. Mother Hypertension Social History Housing: House Alcohol intake: current Alcohol intake frequency: holidays/special occasions only Patient Tobacco Use Status: Never used Tobacco e-Cigarette/Vaping Use: Never Used Second Hand Smoke Exposure: No service: Yes (was in [employer]) Current occupational status: disabled Cognitive needs: No Hearing needs: No Vision needs: No Questionnaire PHQ-9 Over the last 2 weeks, how often have you been bothered by any of the following problems? 1. Little interest or pleasure in doing things: not at all 2. Feeling down, depressed, or hopeless: not at all 3. Trouble falling or staying asleep, or sleeping too much: not at all 4. Feeling tired or having little energy: not at all 5. Poor appetite or overeating: not at all 6. Feeling bad about yourself - or that you are a failure or have let yourself or your family down: not at all 7. Trouble concentrating on things, such as reading the newspaper or watching television: not at all 8. Moving or speaking so slowly that other people could have noticed. Or the opposite - being so fidgety or restless that you have been moving around a lot more than usual: not at all 9. Thoughts that you would be better off or of hurting yourself in some way: not at all Total score: 0 Depression Screening Interpretation: Negative Depression Screening Done: Yes Source: Developed by Drs. Erick Hernández, Laureen Ramos, Serafin Morris and colleagues, with an educational marlo from [employer]. Thrive Questionnaire Date Thrive assessed: 10/14/23 I am a: Patient What is your living situation today?: I have a steady place to live Within the past 12 months, did the food you bought not last and you didn't have the money to get more?: Never true Within the past 12 months, did you worry whether your food would run out before you got money to buy more?: Never true Do you have trouble paying for medicines?: No Do you have trouble getting transportation to medical appointments?: No Do you have trouble paying your heating and electricity bill?: No Do you have trouble taking care of your child, family member or friend?: No Do you have trouble with day-to-day activities such as bathing, preparing meals, shopping, managing finances, etc.?: No Are you currently unemployed and looking for a job?: No Are you interested in more education?: No Please select the resources that you would like help with: None Currently or been in a relationship where the following occur: No concerns reported THRIVE Score: 0 AUDIT C Alcohol Use Questionnaire (AUDIT-C) 1. How often do you have a drink containing alcohol?: Never Total Score: 0 MIR-7 AMB Questionnaire MIR-7 Date MIR - 7 assessed: 10/14/23 Feeling nervous, anxious, or on edge: 0 = Not at all Not being able to stop or control worryin = Not at all Worrying too much about different things: 0 = Not at all Trouble relaxin = Not at all Being so restless that it is hard to sit still: 0 = Not at all Becoming easily annoyed or irritable: 0 = Not at all Feeling afraid as if something awful might happen: 0 = Not at all Total MIR-7 score (0-4 normal; 5-9 mild; 10-14 moderate; 15-21 severe): 0 Source: Developed by Drs. Erick Hernández, Laureen Ramos, Serafin Morris and colleagues, with an educational marlo from [employer]. Physical exam (Primary Care) Vital Signs: Last Vital Signs Pulse 97 10/14/23 10:39 BP 134/78 10/14/23 10:39 Pulse Ox 95 10/14/23 10:39 Oxygen Delivery Method Room Air 10/14/23 10:39 Care Plan Goal for BP management: Blood pressure is in range. BMI result Body Mass Index 32.2 BMI Assessment/Plan discussion: High Tobacco/Smoking Status: Tobacco use Status Tobacco use date assessed 10/14/23 10/14/23 10:40 Patient Tobacco Use Status Never used Tobacco 10/14/23 10:40 e-Cigarette/Vaping Use Never Used 10/14/23 10:40 PHQ-9: PHQ-9 Score PHQ-9: Total score 0 10/14/23 10:40 Depression Screening Interpretation: Negative Thrive Assessment: Date of Thrive Assessment Date Thrive assessed 10/14/23 10/14/23 10:40 Currently or been in a relationship where the following occur: No concerns reported Const General: cooperative and healthy appearing Nutritional Appearance: well nourished Orientation/consciousness: patient oriented x3 Limitations: no limitations HENMT Head: Yes normal to inspection Eyes General: appearance normal, both eyes and all related structures Neck Neck: Yes normal visual inspection Chest Chest palpation & inspection: normal palpation of entire chest wall Resp Effort & Inspection: normal respiratory effort Neuro General: patient oriented x3 Assessment and Plan Assessment & Plan (1) Osteoarthritis of right hip: Code(s): M16.11 - Unilateral primary osteoarthritis, right hip Plan: X-ray of the hip ordered. (2) Mitral regurgitation: Code(s): I34.0 - Nonrheumatic mitral (valve) insufficiency Plan: Condition is stable. (3) Cerebrovascular accident (CVA) determined by clinical assessment: Code(s): I63.9 - Cerebral infarction, unspecified Plan: Condition is stable. Orders: Orders Complete Blood Count no Diff 10/15/23 I34.0 - Nonrheumatic mitral (valve) insufficiency, I63.9 - Cerebral infarction, unspecified Liver Panel 10/15/23 I34.0 - Nonrheumatic mitral (valve) insufficiency, I63.9 - Cerebral infarction, unspecified Thyroid Stimulating Hormone 10/15/23 I34.0 - Nonrheumatic mitral (valve) insufficiency, I63.9 - Cerebral infarction, unspecified UA and rflx microscopic 10/15/23 I34.0 - Nonrheumatic mitral (valve) insufficiency, I63.9 - Cerebral infarction, unspecified XR hip RT w PEL1V 10/15/23 M16.11 - Unilateral primary osteoarthritis, right hip Basic Metabolic Panel 10/15/23 I34.0 - Nonrheumatic mitral (valve) insufficiency, I63.9 - Cerebral infarction, unspecified Lipid Panel 10/15/23 I34.0 - Nonrheumatic mitral (valve) insufficiency, I63.9 - Cerebral infarction, unspecified Coding Level of Care Code Est Pt Level 4 (23893) Complex EM visit Add On G2211 Diagnoses Osteoarthritis of right hip M16.11 Mitral regurgitation I34.0 Cerebrovascular accident (CVA) determined by clinical assessment I63.9
== END 2023-10-14 11:27 | disposition home or self-care (01) ==
PROVIDERS: PCP Internal Medicine; Visit Provider Internal Medicine
DX: M16.11 Unilateral primary osteoarthritis, right hip (principal); I34.0 Nonrheumatic mitral (valve) insufficiency; Z86.73 Personal history of transient ischemic attack (TIA), and cerebral infarction without residual deficits
CPT/HCPCS: 99214; G2211

== ENCOUNTER 2023-10-15 10:47 | Outpatient (REF) | payer OTHER, SELFPAY ==
--- NOTE | ~2023-10-15 | XR_ITS ---
EXAMINATION: XR HIP, RIGHT CLINICAL INFORMATION: Unilateral primary osteoarthritis of the right hip. COMPARISON: None available. TECHNIQUE: AP and frog-leg lateral views of the right hip. AP view of the pelvis. FINDINGS: No fracture. Alignment is anatomic. Hip joints appear relatively well preserved. Ankylosis is suspected in the SI joints. There is degenerative disc disease in the lower lumbar spine. No osseous lesions are identified. Atherosclerotic calcifications are present in the iliac and femoral arteries. Surgical clips are present in the region of the scrotum. XR/XR hip RT w PEL1V IMPRESSION: 1. No acute osseous findings at the right hip. Hip joints appear relatively well preserved. 2. Ankylosis of the SI joints. 3. Degenerative disc disease in the lower lumbar spine. Electronically signed by: Arcadio Tuttle MD 11/09/2023 05:36 PM EDT
[2023-10-15 13:37] LABS: Appearance Urine Clear; Color Urine Yellow; Glucose Urine UA Negative (Negative); Leukocyte Esterase Urine Negative (Negative); Nitrite Urine Negative (Negative); Urine Blood Negative (Negative); Urine Ketones Negative (Negative); Urine Protein Negative (Neg-Trace)
[2023-10-15 13:38] LABS: Hematocrit 40.6 % (42.0-52.0); Hemoglobin 14.1 g/dl (14.0-18.0); Mean Corpuscular HGB Conc 34.7 g/dl (31.0-36.0); Mean Corpuscular Hemoglobin 31.4 pg (27.0-33.0); Mean Corpuscular Volume 90.4 fL (80.0-98.0); Red Blood Count 4.49 X10*6/uL (4.60-5.80); Red Cell Distribution Width 12.7 % (11.0-16.0); White Blood Count 4.8 X10*3/uL (4.8-10.8)
[2023-10-15 13:41] LABS: Platelet Count 147 X10*3/uL (160-400)
[2023-10-15 13:50] LABS: Alanine Aminotransferase 60 U/L (0-40); Albumin Level 4.5 g/dL (3.5-5.0); Alkaline Phosphatase 115 U/L (39-117); Anion Gap 13 (12-20); Aspartate Amino Transferase 58 U/L (5-37); Bilirubin Direct 0.2 mg/dL (0.0-0.5); Bilirubin Total 0.6 mg/dL (0.0-1.0); Blood Urea Nitrogen 19 mg/dL (9-16); Calcium 9.4 mg/dL (8.4-10.2); Carbon Dioxide 24 mmol/L (22-29); Chloride 104 mmol/L (96-108); Cholesterol 202 mg/dL (<200); Estimated Glomerular Filt Rate 53; Glucose Random 156 mg/dL (60-115); HDL Cholesterol 46 mg/dL (>40); Potassium 4.1 mmol/L (3.3-5.1); Sodium 137 mmol/L (135-145); Total Protein 7.4 g/dL (6.5-8.0); Triglycerides 627 mg/dL (<150)
[2023-10-15 14:07] LABS: Thyroid Stimulating Hormone 1.08 uIU/mL (0.32-4.0)
== END 2023-10-15 10:48 | disposition home or self-care (01) ==
LOC: HO.HMGCX 10:47
PROVIDERS: Internal Medicine; PCP Nurse Practitioner Family; Visit Provider Nurse Practitioner Family
DX: M16.11 Unilateral primary osteoarthritis, right hip (principal); I34.0 Nonrheumatic mitral (valve) insufficiency; I63.9 Cerebral infarction, unspecified
CPT/HCPCS: 36415; 73502; 80048; 80061; 80076; 81003; 84443; 85027

== ENCOUNTER 2023-10-21 09:41 | Outpatient (REF) | payer OTHER, SELFPAY ==
[2023-10-21 12:02] LABS: Alanine Aminotransferase 76 U/L (0-40); Albumin Level 4.7 g/dL (3.5-5.0); Alkaline Phosphatase 123 U/L (39-117); Aspartate Amino Transferase 58 U/L (5-37); Bilirubin Direct 0.2 mg/dL (0.0-0.5); Bilirubin Total 0.6 mg/dL (0.0-1.0); Cholesterol 238 mg/dL (<200); HDL Cholesterol 43 mg/dL (>40); Total Protein 7.7 g/dL (6.5-8.0); Triglycerides 832 mg/dL (<150)
== END 2023-10-21 09:42 | disposition home or self-care (01) ==
LOC: HO.WFDLDS 09:41
PROVIDERS: Visit Provider Internal Medicine
DX: I48.91 Unspecified atrial fibrillation (principal); E78.5 Hyperlipidemia, unspecified
CPT/HCPCS: 36415; 80061; 80076

== ENCOUNTER 2023-10-23 10:27 | Outpatient (REF) | payer OTHER, SELFPAY | END 2023-10-23 10:28 | disposition home or self-care (01) | LOC: HO.SH 10:27 | PROVIDERS: Visit Provider Internal Medicine | DX: Z01.118 Encounter for examination of ears and hearing with other abnormal findings (principal); H90.3 Sensorineural hearing loss, bilateral | CPT/HCPCS: 92557; 92567 ==

== ENCOUNTER 2023-11-02 09:34 | Outpatient (REF) | payer OTHER, SELFPAY ==
[2023-11-02 12:18] LABS: Prostate Specific Antigen Scr 2.03 ng/mL (<0.05-4.0)
[2023-11-02 12:29] LABS: Erythrocyte Sedimentation Rate 9 MM/HR (0-15)
== END 2023-11-02 09:35 | disposition home or self-care (01) ==
LOC: HO.WFDLDS 09:34
PROVIDERS: Visit Provider Internal Medicine
DX: G89.4 Chronic pain syndrome (principal); Z12.5 Encounter for screening for malignant neoplasm of prostate
CPT/HCPCS: 36415; 84153; 85652

== ENCOUNTER 2023-11-09 09:45 | Outpatient (AMB) | payer OTHER, SELFPAY ==
[2023-11-09 09:55] VITALS: BP 130/80; PULSE 65; BMI 19.6
--- NOTE | 2023-11-09 09:55 | MHC.OFFVIS ---
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 Accompanied by: Self / Same As Patient Allergies lisinopril Allergy (Intermediate, Verified 10/16/23 08:17) swelling Medication List - Last Reconciled 11/09/23 by Keith Soliman MD albuterol sulfate 90 mcg/actuation (Ventolin HFA) 2 puffs inhalation Q6H PRN apixaban (Eliquis) 5 mg PO BID atorvastatin 40 mg PO QPM baclofen 10 mg PO BEDTIME 90 days cetirizine 10 mg PO DAILY 30 days diclofenac sodium 1% (Arthritis Pain (diclofenac)) 2 grams topical QID PRN docusate sodium (Colace) 100 mg PO DAILY fluticasone propionate 50 mcg/actuation 1 spray intranasal DAILY furosemide 40 mg PO DAILY omeprazole 40 mg PO DAILY sotalol 80 mg PO BID 90 days tramadol 50 mg PO DAILY HPI Comments Details: 62-year-old gentleman here for follow-up. 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 Previously had pulmonary embolism and also has asthma. Main complaint was shortness of breath. We discussed decided to cardioversion. This was successful and he was put on flecainide. He said after cardioversion his dyspnea improved significantly but again came back. He came to the office and was back in atrial fibrillation. He continues to get shortness of breath at this stage. As mentioned he is moderate mitral valve regurgitation. EKG in the office is showing atrial fibrillation. No chest discomfort. He has taking anticoagulation regularly. 10/06/2022: He is here for follow-up. Previously was seen for atrial fibrillation and underwent cardioversion and was started on amiodarone. He was referred for EP evaluation for ablation. He saw Dr. Armendariz for ablation and wanted to discuss with his ex-. He has not gone back to Dr. Armendariz at this stage. While he was at the EP visit he was advised to stop the amiodarone. He has been taking metoprolol and apixaban. He is saying he is short of breath with activity. He is also saying that he has decided to pursue ablation at this stage. He is in atrial fibrillation in the office. Previously when we cardioverted him he felt better and his dyspnea improved significantly. 01/05/2023: He returns for follow-up. He underwent ablation and is currently taking sotalol 80 mg twice a day. He is in sinus rhythm. Denying any chest discomfort or shortness of breath. He is saying that he definitely feels better and is more energetic at this point. Taking medications regularly. No bleeding concerns. 05/06/2023: He returns for follow-up. Denying any significant dyspnea. No chest discomfort. No palpitations. He is on sotalol for atrial fibrillation. He is status post ablation at this point. He has mild MR with myxomatous mitral valve. 11/09/2023: He is here for 6 monthly follow-up. He has been doing well and has no chest pain or significant shortness of breath. He is saying when he is going upstairs quickly he gets short of breath otherwise he does not get any symptoms. He has back pain as well as right hip issues and can not exercise regularly. We discussed about swimming as an option and he will look into that. Recent echocardiography has shown [id number] mitral valve regurgitation. He has mild pulmonary hypertension with PASP of 41 mm Hg. [facility], [facility] Medical History Hard of hearing History of cardioversion History of COVID-19 Stage 3 chronic kidney disease Cerebrovascular accident (CVA) determined by clinical assessment Low back pain Neck pain Essential (primary) hypertension Surgical History History of radiofrequency ablation procedure for cardiac arrhythmia History of cardiac cath History of shoulder surgery Family History Father No problems noted. Mother Hypertension Social History Housing: House Alcohol intake: current Alcohol intake frequency: holidays/special occasions only Patient Tobacco Use Status: Never used Tobacco e-Cigarette/Vaping Use: Never Used Second Hand Smoke Exposure: No service: Yes (was in [employer]) Current occupational status: disabled Cognitive needs: No Hearing needs: No Vision needs: No Review of Systems Const Denies chills, Denies fatigue, Denies fever(s), Denies frequent falls, Denies weakness, Denies weight gain and Denies weight loss ENT Denies dizziness Card Denies chest pain, Denies leg edema, Denies lightheadedness, Denies palpitations, Denies dyspnea and Denies dyspnea on exertion Resp Denies cough, Denies dyspnea and Denies dyspnea on exertion GI Denies hematochezia Musc Denies abnormal gait, Denies muscle weakness, Denies numbness, Denies radiating pain into limb and Denies tingling Neuro Denies abnormal gait, Denies dizziness, Denies frequent falls, Denies numbness, Denies tingling and Denies weakness Endo Denies fatigue and Denies palpitations Physical Exam Vital Signs: Last Vital Signs Pulse 65 11/09/23 09:55 BP 130/80 11/09/23 09:55 BMI result Body Mass Index 19.6 GENERAL APPEARANCE: in no acute distress, pleasant. NECK: no carotid bruit, no jugular venous distention. SKIN: no suspicious lesions, warm and dry. HEART: Regular rate and rhythm. Holosystolic murmur at apex radiating to the axilla. LUNGS: clear to auscultation bilaterally. ABDOMEN: soft, nontender. EXTREMITIES: no edema. PERIPHERAL PULSES: equal. NEUROLOGIC: No gross deficits, AAO X 3 Office Procedures EKG Details: Sinus rhythm 65 beats per minute, normal axis, inferior T-wave inversions, QTC 453 milliseconds. Compared to last ECG he is in sinus rhythm. [id number], Complete Assessment & Plan Assessment & Plan (1) Mitral regurgitation: Code(s): I34.0 - Nonrheumatic mitral (valve) insufficiency Category: Medical (2) Essential (primary) hypertension: Code(s): I10 - Essential (primary) hypertension Category: Medical (3) Atrial fibrillation: Code(s): I48.91 - Unspecified atrial fibrillation Category: Medical Plan 63-year-old gentleman presenting for follow-up. Recent echocardiography is showing [id number] mitral valve regurgitation. He has myxomatous mitral valve disease. Previously had paroxysmal atrial fibrillation for which she underwent ablation and is currently on apixaban and sotalol 80 mg twice a day. QTC is normal on ECG today and he is in sinus rhythm. He has some dyspnea on exertion specially when he is going upstairs quickly. This is likely related to deconditioning as he has significant back issues as well as right hip problems. I have advised him to consider swimming because he will be weightless. Blood pressure control is good. Clinically not in heart failure. We discussed about symptoms of worsening mitral regurgitation. If he has any worsening dyspnea or signs/symptoms of heart failure we will reach out to us certainly otherwise he will see us back in 6 months. Thank you for allowing me to participate in the care of your patient. Please feel free to contact me if you have any questions. Coding Level of Care Code Est Pt Level 4 (51766) Diagnoses Mitral regurgitation I34.0 Essential (primary) hypertension I10 Atrial fibrillation I48.91 CPT Codes EKG - CPT: 49920-[id number], Complete ([id number])
== END 2023-11-09 10:37 | disposition home or self-care (01) ==
PROVIDERS: PCP Internal Medicine; Visit Provider Internal Medicine Cardiovascular Disease
DX: I34.0 Nonrheumatic mitral (valve) insufficiency (principal); I10 Essential (primary) hypertension; I48.91 Unspecified atrial fibrillation
CPT/HCPCS: 93010; 99214

== ENCOUNTER → 2023-11-09 09:45 | Outpatient (BNVA) | payer OTHER, SELFPAY | PROVIDERS: PCP Internal Medicine; Visit Provider Internal Medicine Cardiovascular Disease | DX: I27.20 Pulmonary hypertension, unspecified (principal); I34.0 Nonrheumatic mitral (valve) insufficiency; I48.91 Unspecified atrial fibrillation | CPT/HCPCS: 93005; 99212 ==

== ENCOUNTER 2023-11-10 08:40 | Outpatient (REF) | payer OTHER, SELFPAY ==
--- NOTE | ~2023-11-10 | US_ITS ---
EXAMINATION: US ABDOMEN COMPLETE CLINICAL INFORMATION: Abnormal levels of other serum enzymes. COMPARISON: None available. TECHNIQUE: Real-time imaging of the abdominal viscera. FINDINGS: PANCREAS: Normal. ABDOMINAL AORTA: The proximal, mid, and distal segments are normal in caliber. INFERIOR VENA CAVA: Visualized portions are normal. LIVER: The liver is normal in size. The liver contour is normal. There is diffuse increased liver parenchymal echogenicity, with pericholecystic sparing. No focal hepatic lesion. There is no intrahepatic biliary duct dilatation seen. GALLBLADDER: Normal. The gallbladder is physiologically distended without evidence of stones, sludge, polyps, wall thickening or pericholecystic fluid. COMMON BILE DUCT: Normal in caliber measuring 0.5 cm in diameter. RIGHT KIDNEY: Normal. No hydronephrosis. No renal calculi or focal parenchymal lesions. The kidney measures 10.4 cm in maximum dimension. LEFT KIDNEY: Normal. No hydronephrosis. No renal calculi or focal parenchymal lesions. The kidney measures 9.4 cm in maximum dimension. SPLEEN: Normal. The spleen measures 12.4 cm in maximum dimension. FREE FLUID: None. US/US abdomen complete IMPRESSION: There is generalized increase in hepatic echotexture, consistent with fatty infiltration or hepatocellular disease. Please correlate clinically. Characteristic pericholecystic stranding favors fatty infiltration. No focal hepatic mass or intrahepatic biliary dilatation is seen. Electronically signed by: Gus Cutler MD 11/12/2023 11:41 AM EDT
== END 2023-11-10 08:41 | disposition home or self-care (01) ==
LOC: HO.HMGCX 08:40
PROVIDERS: PCP Internal Medicine; Visit Provider Internal Medicine
DX: R74.8 Abnormal levels of other serum enzymes (principal)
CPT/HCPCS: 76700

== ENCOUNTER 2024-01-14 08:00 | Outpatient (AMB) | payer MEDICARE, SELFPAY ==
--- NOTE | 2024-01-14 08:09 | MHC.PC.OV ---
Vital Signs 01/14/24 08:11 Height 5 ft 7 in Weight 202 lb 6 oz BMI 31.7 BP 110/70 Blood Pressure Location Lt brachial Position Sitting Pulse 68 Pulse Source Pulse Oximeter Pulse Oximetry (%) 97 Oxygen Delivery Method Room Air Intake Visit Reasons: 3mth f/u Intake Note: Patient is here to follow up on HTN, Chronic pain, Asthma, CKD. Licensed And Certified Midwife Required: No E Commerce Manager: Not Required per policy Accompanied by: Self / Same As Patient Allergies lisinopril Allergy (Intermediate, Verified 01/21/24 16:48) swelling Medication List - Last Reconciled 01/21/24 by Josué Pool MD albuterol sulfate 90 mcg/actuation (Ventolin HFA) 2 puffs inhalation Q6H PRN apixaban (Eliquis) 5 mg PO BID atorvastatin 40 mg PO QPM baclofen 10 mg PO BEDTIME cetirizine 10 mg PO DAILY 30 days diclofenac sodium 1% (Arthritis Pain (diclofenac)) 2 grams topical QID PRN docusate sodium (Colace) 100 mg PO DAILY fluticasone propionate 50 mcg/actuation 1 spray intranasal DAILY furosemide 40 mg PO DAILY omeprazole 40 mg PO DAILY sotalol 80 mg PO BID 90 days tramadol 50 mg PO DAILY Tobacco use date assessed: 01/14/24 Fall risk assessment: No Falls in past year Last assessed Fall Risk: 01/14/24 Dental Screening Dental Screen Date: 10/14/23 HPI 3mth f/u HPI Details 63-year-old male presents to the office to discuss his chronic medical conditions. He is compliant with medications and reporting no side effects. Able to function and do all activities of daily living. [facility] Medical History Hard of hearing History of cardioversion History of COVID-19 Stage 3 chronic kidney disease Cerebrovascular accident (CVA) determined by clinical assessment Low back pain Neck pain Essential (primary) hypertension Surgical History History of radiofrequency ablation procedure for cardiac arrhythmia History of cardiac cath History of shoulder surgery Family History Father No problems noted. Mother Hypertension Social History Housing: House Alcohol intake: current Alcohol intake frequency: holidays/special occasions only Patient Tobacco Use Status: Never used Tobacco e-Cigarette/Vaping Use: Never Used Second Hand Smoke Exposure: No service: Yes (was in [employer]) Current occupational status: disabled Cognitive needs: No Hearing needs: No Vision needs: No Questionnaire Thrive Questionnaire Date Thrive assessed: 10/14/23 MIR-7 AMB Questionnaire MIR-7 Date MIR - 7 assessed: 10/14/23 Source: Developed by Drs. Erick Hernández, Laureen Ramos, Serafin Morris and colleagues, with an educational marlo from [employer]. Physical exam (Primary Care) Vital Signs: Last Vital Signs Pulse 68 01/14/24 08:11 BP 110/70 01/14/24 08:11 Pulse Ox 97 01/14/24 08:11 Oxygen Delivery Method Room Air 01/14/24 08:11 BMI result Body Mass Index 31.7 Tobacco/Smoking Status: Tobacco use Status Tobacco use date assessed 01/14/24 01/14/24 08:24 Patient Tobacco Use Status Never used Tobacco 01/14/24 08:09 e-Cigarette/Vaping Use Never Used 01/14/24 08:09 Thrive Assessment: Date of Thrive Assessment Date Thrive assessed 10/14/23 01/14/24 08:09 Const General: cooperative and healthy appearing Nutritional Appearance: well nourished Orientation/consciousness: patient oriented x3 Limitations: no limitations HENMT Head: Yes normal to inspection Eyes General: appearance normal, both eyes and all related structures Neck Neck: Yes normal visual inspection Chest Chest palpation & inspection: normal palpation of entire chest wall Resp Effort & Inspection: normal respiratory effort Neuro General: patient oriented x3 Office Procedures Flu Questionnaire Does the patient have a severe egg allergy?: No Does the patient have severe life threatening allergies?: No Does the patient have a fever or illness today?: No Has the patient ever had Guillain-[place] Syndrome?: No Has the patient ever had any past reaction to a flu shot?: No Results AMB Hemoglobin A1c AMB Hemoglobin A1c 5.1 % Last Edit by AMILCAR Zarate on 01/14/24 08:24 Immunizations Fluarix Triv [id number] (PF) 45 mcg (15 mcg x 3)/0.5 mL IM syringe Performing Provider: Josué Pool MD [facility] Administered by: AMILCAR Santos on 01/14/24 08:28 Dose Route Admin Location Dispensed Lot Number Expiration Date NDC Gill Tender 0.5 mL IM Left Deltoid 0.5 mL [id number] 08/22/24 35697-845-22 [employer] VIS Given Date VIS Provided VIS Publication Date 01/14/24 Single Vaccine 20 Eligibility Eligibility Date Funding Source Not [facility] Eligible 01/14/24 Private Results Reviewed Results Reviewed: Laboratory Last Values Hgb A1c (Clinic) 5.1 % (4.0-6.0) 01/14/24 08:09 Coding Level of Care Code Est Pt Level 3 (03137) Complex EM visit Add On G2211 Diagnoses Essential (primary) hypertension I10 Assessment & Plan Assessment & Plan (1) Essential (primary) hypertension: Code(s): I10 - Essential (primary) hypertension Category: Medical Plan: Blood pressure is in range. Continue medications at same dosage. Orders: Orders Influenza [id number] Immunization 01/14/24 Z23 - Encounter for immunization AMB Hemoglobin A1c 01/14/24 Z13.9 - Encounter for screening, unspecified
[2024-01-14 08:11] VITALS: BP 110/70; PULSE 68; O2SAT 97; BMI 31.7
== END 2024-01-14 08:47 | disposition home or self-care (01) ==
PROVIDERS: PCP Internal Medicine; Visit Provider Internal Medicine
DX: I10 Essential (primary) hypertension (principal)

== ENCOUNTER → 2024-01-14 08:00 | Outpatient (BNVA) | payer OTHER, SELFPAY | PROVIDERS: PCP Internal Medicine; Visit Provider Internal Medicine | DX: Z23 Encounter for immunization (principal); Z13.1 Encounter for screening for diabetes mellitus; I12.9 Hypertensive chronic kidney disease with stage 1 through stage 4 chronic kidney disease, or unspecified chronic kidney disease; N18.30 Chronic kidney disease, stage 3 unspecified | CPT/HCPCS: 83036; 90471; 90656; 99212 ==

== ENCOUNTER 2024-05-16 09:03 | Outpatient (AMB) | payer OTHER, SELFPAY ==
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
[2024-05-16 09:16] VITALS: BP 140/80; PULSE 54; BMI 31.1
== END 2024-05-16 09:39 | disposition home or self-care (01) ==
LOC: HO.HCS 09:03
PROVIDERS: PCP Internal Medicine; Visit Provider Internal Medicine Cardiovascular Disease
DX: I10 Essential (primary) hypertension (principal); I48.91 Unspecified atrial fibrillation; I34.0 Nonrheumatic mitral (valve) insufficiency; R07.9 Chest pain, unspecified
CPT/HCPCS: 93010; 99214

== ENCOUNTER → 2024-05-16 09:03 | Outpatient (BNVA) | payer MEDICARE, SELFPAY | PROVIDERS: PCP Internal Medicine; Visit Provider Internal Medicine Cardiovascular Disease | DX: I10 Essential (primary) hypertension (principal); I48.91 Unspecified atrial fibrillation; I34.0 Nonrheumatic mitral (valve) insufficiency; R07.9 Chest pain, unspecified | CPT/HCPCS: 93005; 99212 ==

== ENCOUNTER → 2024-07-26 07:39 | Outpatient (REF) | payer MEDICARE, SELFPAY ==
--- NOTE | ~2024-07-26 | NM_ITS ---
EXERCISE MYOCARDIAL PERFUSION STUDY INDICATION: Chest pain TECHNIQUE: The patient was brought in for an exercise perfusion study on 07/26/2024. Patient performed exercise as per Aidan protocol and was injected 30 mCi of sestamibi once target heart rate was achieved. Images were obtained using the SPECT gamma camera interlaced with the gating device. Images were obtained in supine position. Resting perfusion study was performed on 07/27/2024. Patient was administered 30 mCi of sestamibi intravenously at rest. Images were then obtained in supine position. Total DLP 78 mGy-cm. Images were processed with the software and compared side to side in short axis, horizontal long axis and vertical long axis views. FINDINGS: Raw aquisition reviewed. The stress perfusion study showed diminished tracer uptake along the inferior wall and the inferior apex. There is improvement with CT attenuation correction and hence could be all artifactual. At the apex there is evidence of thinning. The gated study shows normal LV systolic function with calculated LVEF of 54%. LV cavity is normal in size. The gated study shows normal wall thickening and contraction of segments. Resting study shows diminished tracer uptake at the inferior wall including the adjacent apex. There is improvement with CT attenuation correction suggestive of diaphragmatic attenuation artifact. Evidence of apical thinning. Gating at rest reveals normal wall motion with ejection fraction at 56%. The findings are consistent with fixed perfusion defect in the inferior wall and adjacent apex which could be related to diaphragmatic attenuation artifact. No clear reversible defects. NM/NM cardiolite stress test IMPRESSION: 1. Myocardial perfusion imaging study shows no clear evidence of ischemia. Fixed inferior defect likely from diaphragmatic attenuation artifact. In the apical portion, again reduced uptake with normal contractility on gating-could be artifactual but cannot exclude small nontransmural infarct. 2. Gated LVEF is 54% during stress and 56% during rest. 3. Transient ischemic dilatation not present. EKG component of the test reported separately. Electronically signed by: Andrew Jenkins MD 07/27/2024 04:25 PM EDT
--- OUTSIDE RECORDS SUMMARY | 2024-07-26 07:41 | XMS_ITS | Encounter Summary ---
Author Organization [facility], Address [address] [place] [address] Phone Care Team Providers Care Chief Steward/Stewardess Name Role Phone Albert Montez MD Primary Care Provider [phone] Encounter Details Date Type Department Care Team (Late st Contact Info) Description 05/07/2021 Documentation Only [facility], [address] [place] [address] Ruddy Amezcua MD [address] [place] [address] Social History Tobacco Use Types Packs/Day Years Used Date Smoking Tobacco: Never Smokeless Tobacco: Never Alcohol Use Standard Drinks/Week Comments Yes 0 (1 standard drink = 0.6 oz pur e alcohol) 1-2 BEERS A NIGHT PER WEEK Sex and Gender Information Value Date Recorded Sex Assigned at Not on file Legal Sex Male 1:40 PM EDT Gender Identity Not on file Sexual Orientation Not on file documented as of this encounter Plan of Treatment Not on file documented as of this encounter Visit Diagnoses Not on filedocumented in this encounter Care Teams Chief Steward/Stewardess Relationship Specialty Start Date End Date Albert Montez MD [address] [place], [place] PCP - General Internal Medicine 10/15/20 documented as of this encounter
--- NOTE | 2024-07-26 07:42 | CA_ITS ---
Acquisition Time: 2024-07-26 08:03:11 Total Exercise Time: 00:05:01 Test Indications: CP, AFIB Medications: SEE H&P Protocol: DERRELL Max HR: 142 BPM 91% of Pred: 155 BPM Max BP: 196/90 mmHG Max Work Load: 4.6 METS Exercise stress test with exercise 5 mins 1 secs of Derrell Protocol, held at Stage 1, acheiving 91% MPHR, with reports of severe SOB, no chest pain, with isolated PVCs and one ventricular couplet, with normotensive response to exercise. Without EKG changes meeting criteria for ischemia. In recovery, breathing returned to baseline. Nuclear images pending. Test reviewed with Dr. Jenkins. Referred By: Keith Soliman Electronically Signed By: Prince Cervantes
== END ==
LOC: HO.CARD 07:39
PROVIDERS: PCP Internal Medicine; Visit Provider Internal Medicine Cardiovascular Disease
DX: R07.9 Chest pain, unspecified (principal)
CPT/HCPCS: 78452; 93017; A9500; J0280; J2785

== ENCOUNTER → 2024-07-26 07:42 | Outpatient (BNV) | payer MEDICARE, SELFPAY | PROVIDERS: PCP Internal Medicine | DX: R06.02 Shortness of breath (principal); I49.3 Ventricular premature depolarization | CPT/HCPCS: 78452; 93016; 93018 ==

== ENCOUNTER 2024-08-17 09:43 | Outpatient (AMB) | payer MEDICARE, SELFPAY ==
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
[2024-08-17 10:10] VITALS: BP 142/82; PULSE 63; BMI 31.4
--- OUTSIDE RECORDS SUMMARY | 2024-08-17 11:00 | XMS_ITS | Encounter Summary ---
Author Organization [facility], Address [address] [place] [address] Phone Care Team Providers Care Relationship Management Lead Name Role Phone Albert Montez MD Primary Care Provider [phone] Encounter Details Date Type Department Care Team (Late st Contact Info) Description 05/07/2021 Documentation Only [facility], [address] [place] [address] Ruddy Amezcua MD [address] [place] [address] Social History Tobacco Use Types [...] on filedocumented in this encounter Care Teams Relationship Management Lead Relationship Specialty Start Date End Date Albert Monetz MD [address] [place], [place] PCP - General Internal Medicine 10/15/20 documented as of this encounter
== END 2024-08-17 10:52 | disposition home or self-care (01) ==
PROVIDERS: PCP Internal Medicine; Visit Provider Internal Medicine Cardiovascular Disease
DX: I10 Essential (primary) hypertension (principal); I34.0 Nonrheumatic mitral (valve) insufficiency; R06.00 Dyspnea, unspecified
CPT/HCPCS: 93010; 99214; G2211

== ENCOUNTER → 2024-08-17 09:43 | Outpatient (BNVA) | payer MEDICARE, SELFPAY | PROVIDERS: PCP Internal Medicine; Visit Provider Internal Medicine Cardiovascular Disease | DX: I10 Essential (primary) hypertension (principal); I34.0 Nonrheumatic mitral (valve) insufficiency; R06.00 Dyspnea, unspecified | CPT/HCPCS: 93005; 99212 ==

== ENCOUNTER 2024-09-05 11:17 | Outpatient (AMB) | payer MEDICARE, SELFPAY ==
[2024-09-05 11:58] VITALS: BP 138/76; PULSE 63; TEMP 36.7; O2SAT 96; BMI 31.8
--- NOTE | 2024-09-05 11:58 | AM.OFFWIN_ITS ---
Intake Vital Signs 09/05/24 11:58 Height 5 ft 7 in Weight 203 lb 2 oz BMI 31.8 BP 138/76 Blood Pressure Location Lt brachial Position Sitting Pulse 63 Pulse Source Pulse Oximeter Temp 98.0 F Temp Source Oral Pulse Oximetry (%) 96 Oxygen Delivery Method Room Air Intake Visit Reasons: EP severe back pain Intake Note: Patient presents with back pain after opening the pool ... 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 Reports that he was helping his grandson take down the Pool, thinks he might have pulled a muscle when he bent down. He has tried to use Icy Hot with some relief. He does take Tramadol and Baclofen in a daily basis - reports good relief on them. Pt asking for back Xrays to make sure nothing is broken. [facility] Medical History Hard of hearing History of cardioversion History of COVID-19 Stage 3 chronic kidney disease Cerebrovascular accident (CVA) determined by clinical assessment Low back pain Neck pain Essential (primary) hypertension Surgical History History of radiofrequency ablation procedure for cardiac arrhythmia History of cardiac cath History of shoulder surgery Family History Father No problems noted. Mother Hypertension Social History Housing: House Alcohol intake: current Alcohol intake frequency: holidays/special occasions only Patient Tobacco Use Status: Never used Tobacco e-Cigarette/Vaping Use: Never Used Second Hand Smoke Exposure: No service: Yes (was in [employer]) Current occupational status: disabled Cognitive needs: No Hearing needs: No Vision needs: No Review of Systems Const All systems reviewed & are unremarkable except as noted in HPI and below Physical Exam Vital Signs: Last Vital Signs Temp 98.0 F 09/05/24 11:58 Pulse 63 09/05/24 11:58 BP 138/76 09/05/24 11:58 Pulse Ox 96 09/05/24 11:58 Oxygen Delivery Method Room Air 09/05/24 11:58 BMI result Body Mass Index 31.8 Const General: no acute distress Nutritional Appearance: obese Orientation/consciousness: patient oriented x3 Back/Spine/Pelvis Back: back tenderness Thoracic/Lumbar Spine: pain with thoraco-lumbar ROM, thoraco-lumbar spasm, thor acic spinal tenderness and lumbar spinal tenderness Neuro General: patient oriented x3, gait normal and moves all extremities Psych Speech and movement: Normal speech and movement present Assessment & Plan Assessment & Plan (1) Low back pain: Code(s): M54.5 - Low back pain Qualifiers: Back pain laterality: midline Chronicity: acute Sciatica presence: without sciatica Qualified Code(s): M54.50 - Low back pain, unspecified Plan: Continue taking Tramadol and Baclofen as directed. Ice/Hot Acetaminophen for pain relief. Orders: Orders XR lumbar spine 2-3V Today M54.50 - Low back pain, unspecified Coding Level of Care Code Est Pt Level 4 (92898) Diagnoses Acute midline low back pain without sciatica M54.50 Back pain laterality: midline Chronicity: acute Sciatica presence: without sciatica Time Spent (min) 20
--- OUTSIDE RECORDS SUMMARY | 2024-09-05 12:25 | XMS_ITS | Encounter Summary ---
Author Organization [facility], Address [address] [place] [address] Phone Care Team Providers Care X Ray Equipment Servicer Name Role Phone Albert Montez MD Primary Care Provider [phone] Encounter Details Date Type Department Care Team (Late st Contact Info) Description 05/07/2021 Documentation Only [facility], [address] [place] [address] Ruddy Amezcua MD [address] [place] [address] Social History Tobacco Use Types [...] on filedocumented in this encounter Care Teams X Ray Equipment Servicer Relationship Specialty Start Date End Date Albert Montez MD [address] [place], [place] PCP - General Internal Medicine 10/15/20 documented as of this encounter
== END 2024-09-05 12:28 | disposition home or self-care (01) ==
PROVIDERS: PCP Internal Medicine; Visit Provider Nurse Practitioner Family
DX: M54.50 Low back pain, unspecified (principal)

== ENCOUNTER 2024-09-05 11:17 | Outpatient (REF) | payer MEDICARE, SELFPAY ==
--- NOTE | ~2024-09-05 | XR_ITS ---
EXAMINATION: XR LUMBOSACRAL SPINE CLINICAL INFORMATION: M54.50 - Low back pain, unspecified COMPARISON: 11/05/2022 TECHNIQUE: Three views of the lumbosacral spine. FINDINGS: There are 5 nonrib-bearing lumbar segments. There is subtle convex right curvature of the thoracolumbar spine. L2-3: Asymmetric narrowing, stable. There is facet sclerosis. Stable slightly increased. L3-4: There is mild to moderate disc space narrowing and facet sclerosis with osteophytes, stable to slightly increased. L4-5: There is moderate disc space narrowing, anterior and lateral endplate osteophytes, and facet sclerosis appears stable. L5-S1: There is moderate disc space narrowing with vacuum phenomena and facet sclerosis that appears stable. XR/XR lumbar spine 2-3V IMPRESSION: Multilevel degenerative disc disease and facet arthropathy is most advanced at L4-5. Electronically signed by: Pradeep Harrington MD 09/05/2024 12:59 PM EDT
== END 2024-09-05 11:18 | disposition home or self-care (01) ==
LOC: HO.HMGCX 11:17
PROVIDERS: PCP Internal Medicine; Visit Provider Nurse Practitioner Family
DX: M54.50 Low back pain, unspecified (principal); Z79.899 Other long term (current) drug therapy
CPT/HCPCS: 72100; 99212

== ENCOUNTER → 2024-09-05 12:27 | Outpatient (BNV) | payer MEDICARE, SELFPAY | PROVIDERS: PCP Internal Medicine; Visit Provider Radiology Diagnostic Radiology | DX: M50.30 Other cervical disc degeneration, unspecified cervical region (principal); M47.812 Spondylosis without myelopathy or radiculopathy, cervical region | CPT/HCPCS: 72100 ==

== ENCOUNTER 2024-10-14 08:21 | Outpatient (AMB) | payer MEDICARE, SELFPAY ==
--- NOTE | 2024-10-14 08:30 | A.OFFVIS_ITS ---
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 The back pain has been persistent since an incident in July when the patient was working on removing a pool, leading to numbness and severe pain in the right leg. The pain is described as severe, with numbness and tingling radiating down the right leg, exacerbated by certain movements and unrelieved by medications such as tramadol and muscle relaxers. The patient has a history of atrial fibrillation, which was treated with a procedure to restore normal rhythm. Despite the procedure, occasional episodes o f atrial fibrillation persist, and the patient is on Eliquis for anticoagulation. Hypertension is also a concern, with recent adjustments in medication to better control blood pressure. The patient experiences dyspnea on exertion, particularly when climbing stairs, which is under evaluation by the health center manager. The patient reports a history of degenerative disc disease and arthritis, with recent imaging showing age-related changes and wear and tear in the spine. Previous interventions included injections and physical therapy, but the current exacerbation of symptoms has prompted further evaluation. Neuropathy is suspected due to numbness and tingling in the legs, with a nerve conduction study planned to assess the extent and origin of these symptoms. - Onset: Pain began after physical activity in July. - Quality: Described as severe, with numbness and tingling. - Location: Primarily in the back, radiating down the right leg to the calf. - Exacerbating Factors: Movement, particularly bending and twisting. - Relieving Factors: None effective, despite medication and heat application. - Interference: Affects sleep and daily activities. - Affect: Pain significantly impacts sleep and daily activities. - Analgesia: Currently using tramadol and baclofen, with limited relief. - Adverse Effects: None reported from current medications. - Activities of Daily Living: Pain interferes with mobility and sleep. - Aberrant Drug Related Behaviors: None reported, but patient is considering changing primary care provider due to medication management issues. Prior visit 10/2022: Andrey is a very pleasant 62-year-old male who presents to the office today for evaluation management of his chronic lower back pain. Patient reports that he has been suffering with this pain for greater than 10 years. 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 Pain is across lower back, right worse than left, with some radiation into the buttocks and thigh. He denies radiation of the pain past the level of the knee. Patient reports the pain is worse with activity, standing, walking and overall general movement. He rates his pain today as 10/10, aching, stabbing, burning. Patient is currently taking tramadol 50 mg once daily and baclofen 10 mg at bedtime. He states these medications lessen his pain and improve his mobility and function but only for a short duration. He has asked for dose escalation from his prescriber but due to his other chronic health conditions a dose escalation is deemed unsafe. Patient has tried physical therapy, last time was about 5 years ago. He was given home exercise program on discharge from physical therapy that he reports he still does. He did not find benefit of physical therapy or current home exercise program. He has had multiple injections in his back more than 10 years ago at [facility] pain management and he is unable to detail further the injections or benefits he received. He has tried [id number] lidocaine patches, topical ointments and NSAIDs all without relief of his pain. Patient denies red flag symptoms including loss of bowel, bladder or saddle anesthesia. Patient had a recent x-ray of his lumbar spine, this was reviewed during his visit today. Results as per below. In terms of muscle damage condition is described as aching, spasming, hot, burning, stabbing, sharp, shooting, throbbing, tingling, pins and needles. Pain is negatively impacting patient's enjoyment of life, general activity, mood, normal work, recreational activities, relationship, sleep and walking. Of note patient is currently on Eliquis for atrial fibrillation. He has had 2 attempts at cardioversion in the past which were initially successful at returning patient to [facility] but ultimately he ended up back in Af[facility]. He is scheduled for cardiac ablation at [facility] 12/09/22. [facility] Medical History Hard of hearing History of cardioversion History of COVID-19 Stage 3 chronic kidney disease Cerebrovascular accident (CVA) determined by clinical assessment Low back pain Neck pain Essential (primary) hypertension Surgical History History of radiofrequency ablation procedure for cardiac arrhythmia History of cardiac cath History of shoulder surgery Family History Father No problems noted. Mother Hypertension Social History Housing: House Alcohol intake: current Alcohol intake frequency: holidays/special occasions only Patient Tobacco Use Status: Never used Tobacco e-Cigarette/Vaping Use: Never Used Second Hand Smoke Exposure: No service: Yes (was in [employer]) Current occupational status: disabled Cognitive needs: No Hearing needs: No Vision needs: No Review of Systems Const Details: - Cardiovascular: Reports dyspnea on exertion. Denies chest pain. - Musculoskeletal: Reports severe back pain radiating to the right leg. - Neurological: Reports numbness and tingling in the right leg. Physical Exam Exam Exam: General: awake, alert, oriented. Answers questions appropriately. Fully engaged in examination. Skin: warm, dry, intact HEENT: Normocephalic. Hearing intact. Cardiac: External chest normal in appearance. Respiratory: No cough, audible wheezing or stridor. Abdomen: without gross distension. MS: No obvious swelling or deformities. Able to stand on bilateral tiptoes and bilateral heels.? Able to transition from sit to stand unassisted. Ambulates with bilaterally normal heel strike and toe off Bilateral lower extremity strength 5/5 Pain on backward bending, twisting, and turning to the side; numbness and tingling in the right leg Neurological: Oriented to person, place, time and situation. Thought process intact. No gait abnormalities appreciated. Psychiatric: Appropriate mood and affect. Good judgment and insight. Vital Signs: Last Vital Signs Pulse 62 10/14/24 08:31 Resp 16 10/14/24 08:31 BP 161/89 H 10/14/24 08:31 Pulse Ox 97 10/14/24 08:31 Oxygen Delivery Method Room Air 10/14/24 08:31 BMI result Body Mass Index 31.8 Results Reviewed Results Reviewed: 08/2024 XR LS FINDINGS: There are 5 nonrib-bearing lumbar segments. There is subtle convex right curvature of the thoracolumbar spine. L2-3: Asymmetric narrowing, stable. There is facet sclerosis. Stable slightly increased. L3-4: There is mild to moderate disc space narrowing and facet sclerosis with osteophytes, stable to slightly increased. L4-5: There is moderate disc space narrowing, anterior and lateral endplate osteophytes, and facet sclerosis appears stable. L5-S1: There is moderate disc space narrowing with vacuum phenomena and facet sclerosis that appears stable. IMPRESSION: Multilevel degenerative disc disease and facet arthropathy is most advanced at L4-5. 11/05/22 FINDINGS: Marked degenerative changes are present predominantly at L4-L5 and L5-S1 with severe disc space narrowing and endplate sclerosis and osteophytes. No bony destructive lesions are seen. No fractures or subluxations. Mild degenerative changes are partially imaged in both hips. IMPRESSION: Marked degenerative changes L4-L5 and L5-S1. Assessment & Plan Assessment & Plan (1) Lumbar radiculopathy: Code(s): M54.16 - Radiculopathy, lumbar region Category: Medical (2) Lumbar spondylosis: Code(s): M47.816 - Spondylosis without myelopathy or radiculopathy, lumbar region Category: Medical (3) Paresthesia of bilateral legs: Code(s): R20.2 - Paresthesia of skin Category: Medical (4) Lumbar facet arthropathy: Code(s): M47.816 - Spondylosis without myelopathy or radiculopathy, lumbar region Category: Medical (5) Chronic pain syndrome: Code(s): G89.4 - Chronic pain syndrome Category: Medical (6) Chronic, continuous use of opioids: Code(s): F11.90 - Opioid use, unspecified, uncomplicated Category: Medical Plan The plan includes initiating physical therapy to address the chronic back pain and associated symptoms. A nerve conduction study is ordered to evaluate the numbness and tingling in the legs. The patient is advised to follow up with the primary care physician regarding medication management, particularly concerning the use of tramadol and baclofen. If physical therapy does not alleviate symptoms, an MRI will be considered to further investigate the cause of the pain and determine appropriate interventions, such as injections. Patient was informed and verbally consented to the use of an ambient scribe for clinic note documentation during this visit. Orders: Orders NE nerve conduction velocity Today R20.2 - Paresthesia of skin PT Evaluation and Treatment Today M47.816 - Spondylosis without myelopathy or radiculopathy, lumbar region, M54.16 - Radiculopathy, lumbar region NE electromyogram (EMG) Today R20.2 - Paresthesia of skin Patient Instructions: - Begin physical therapy as scheduled. - Follow up with primary care physician regarding medication management. - Attend the nerve conduction study appointment. - Report back if physical therapy worsens symptoms or is ineffective. Coding Level of Care Code Est Pt Level 3 (42219) Complex EM visit Add On G2211 Diagnoses Lumbar radiculopathy M54.16 Lumbar spondylosis M47.816 Paresthesia of bilateral legs R20.2 Lumbar facet arthropathy M47.816 Chronic pain syndrome G89.4 Chronic, continuous use of opioids F11.90
[2024-10-14 08:31] VITALS: BP 161/89; PULSE 62; RESP 16; O2SAT 97; BMI 31.8
--- OUTSIDE RECORDS SUMMARY | 2024-10-14 08:35 | XMS_ITS | Encounter Summary ---
Author Organization [facility], Address [address] [place] [address] Phone Care Team Providers Care Facility Coordinator Name Role Phone Albert Montez MD Primary Care Provider [phone] Encounter Details Date Type Department Care Team (Late st Contact Info) Description 05/07/2021 Documentation Only [facility], [address] [place] [address] Ruddy Amezcua MD [address] [place] [address] Social History Tobacco Use Types [...] on filedocumented in this encounter Care Teams Facility Coordinator Relationship Specialty Start Date End Date Albert Montez MD [address] [place], [place] PCP - General Internal Medicine 10/15/20 documented as of this encounter
== END 2024-10-14 09:01 | disposition home or self-care (01) ==
LOC: HO.PMC 08:21
PROVIDERS: PCP Internal Medicine; Visit Provider Registered Nurse Emergency
DX: M54.16 Radiculopathy, lumbar region (principal); M47.816 Spondylosis without myelopathy or radiculopathy, lumbar region; R20.2 Paresthesia of skin; G89.4 Chronic pain syndrome; Z79.891 Long term (current) use of opiate analgesic
CPT/HCPCS: 99213; G2211

== ENCOUNTER → 2024-10-14 08:21 | Outpatient (BNVA) | payer MEDICARE, SELFPAY | PROVIDERS: PCP Internal Medicine; Visit Provider Registered Nurse Emergency | DX: M54.16 Radiculopathy, lumbar region (principal); M47.816 Spondylosis without myelopathy or radiculopathy, lumbar region; R20.2 Paresthesia of skin; G89.4 Chronic pain syndrome; F11.90 Opioid use, unspecified, uncomplicated; Z79.01 Long term (current) use of anticoagulants | CPT/HCPCS: 99212 ==

== ENCOUNTER 2024-10-19 14:00 | Outpatient (AMB) | payer MEDICARE, SELFPAY ==
--- NOTE | 2024-10-19 14:05 | MHC.PC.OV ---
Vital Signs 10/19/24 14:12 Height 5 ft 7 in Weight 205 lb 6 oz BMI 32.2 BP 128/68 Blood Pressure Location Lt brachial Position Sitting Pulse 62 Pulse Source Pulse Oximeter Temp 97.1 F Temp Source Temporal Artery Scan Pulse Oximetry (%) 96 Oxygen Delivery Method Room Air Intake Visit Reasons: 6mth f/u - see comments Intake Note: Patient is here to follow up on Chronic pain, Asthma, CKD. 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: No Numerical Tool Programmer: Not Required per policy Accompanied by: Self / Same As Patient Allergies lisinopril Allergy (Intermediate, Verified 10/19/24 14:09) swelling Tobacco use date assessed: 10/19/24 Fall risk assessment: No Falls in past year Last assessed Fall Risk: 10/19/24 Dental Screening Dental Screen Date: 10/19/24 Did you have a dental visit in the last 12 months?: No Did you have a dental problem in the last 6 months where you did not have access to dental care?: No Was dental information given to patient?: No [facility] Medical History Hard of hearing History of cardioversion History of COVID-19 Stage 3 chronic kidney disease Cerebrovascular accident (CVA) determined by clinical assessment Low back pain Neck pain Essential (primary) hypertension Surgical History History of radiofrequency ablation procedure for cardiac arrhythmia History of cardiac cath History of shoulder surgery Family History Father No problems noted. 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 1. Little interest or pleasure in doing things: several days 2. Feeling down, depressed, or hopeless: several days 3. Trouble falling or staying asleep, or sleeping too much: several days 4. Feeling tired or having little energy: several days 5. Poor appetite or overeating: several days 6. Feeling bad about yourself - or that you are a failure or have let yourself or your family down: not at all 7. Trouble concentrating on things, such as reading the newspaper or watching television: not at all 8. Moving or speaking so slowly that other people could have noticed. Or the opposite - being so fidgety or restless that you have been moving around a lot more than usual: not at all 9. Thoughts that you would be better off or of hurting yourself in some way: not at all Total score: 5 Depression Screening Interpretation: Positive Depression Screening Done: Yes Source: Developed by Drs. Erick Hernández, Serafin Posada and colleagues, with an educational marlo from [employer]. Thrive Questionnaire Date Thrive assessed: 10/19/24 I am a: Patient AUDIT C Alcohol Use Questionnaire (AUDIT-C) 1. How often do you have a drink containing alcohol?: Never Total Score: 0 MIR-7 AMB Questionnaire MIR-7 Date MIR - 7 assessed: 10/19/24 Feeling nervous, anxious, or on edge: 0 = Not at all Not being able to stop or control worryin = Not at all Worrying too much about different things: 0 = Not at all Trouble relaxin = Not at all Being so restless that it is hard to sit still: 0 = Not at all Becoming easily annoyed or irritable: 0 = Not at all Feeling afraid as if something awful might happen: 0 = Not at all Total MIR-7 score (0-4 normal; 5-9 mild; 10-14 moderate; 15-21 severe): 0 Source: Developed by Drs. Erick Hernández, Serafin Posada and colleagues, with an educational marlo from [employer]. Physical exam (Primary Care) Vital Signs: Last Vital Signs Temp 97.1 F 10/19/24 14:12 Pulse 62 10/19/24 14:12 BP 128/68 10/19/24 14:12 Pulse Ox 96 10/19/24 14:12 Oxygen Delivery Method Room Air 10/19/24 14:12 BMI result Body Mass Index 32.2 Tobacco/Smoking Status: Tobacco use Status Tobacco use date assessed 10/19/24 10/19/24 14:17 Patient Tobacco Use Status Never used Tobacco 10/19/24 14:06 e-Cigarette/Vaping Use Never Used 10/19/24 14:06 PHQ-9: PHQ-9 Score PHQ-9: Total score 5 10/19/24 14:06 Depression Screening Interpretation: Positive Thrive Assessment: Date of Thrive Assessment Date Thrive assessed 10/19/24 10/19/24 14:06 Coding Level of Care Code Est Pt Level 4 (93040) Complex EM visit Add On G2211 Diagnoses Essential (primary) hypertension I10 Assessment & Plan Assessment & Plan (1) Essential (primary) hypertension: Code(s): I10 - Essential (primary) hypertension Category: Medical Plan: Blood work ordered. Will call with results Plan History of Present Illness - The patient is a 63-year-old male presenting with chronic back pain and neuropathy. - The back pain has worsened significantly, becoming constant and severe. - Neuropathy initially presented as numbness in one leg and has progressed to severe pain in the other leg. - The patient visited a pain management clinic where x-rays were performed, but no immediate intervention was provided. - Pain management recommended physical therapy and an MRI, which requires prior therapy sessions. - The patient reports insomnia due to pain, currently managed with tramadol and baclofen, though he is exceeding the prescribed dosage. - The patient has an 8-year-old grandson, which impacts his daily activities and responsibilities. Social History - The patient has an 8-year-old grandson, which impacts his daily activities and responsibilities. Review of Systems - Musculoskeletal: Reports chronic back pain and neuropathy. - Neurological: Reports numbness and severe pain in the legs. - Sleep: Reports insomnia due to pain. Physical Exam General: Cooperative and healthy appearing Nutritional Appearance: Well nourished Orientation/consciousness: Patient oriented x3 Limitations: No limitations Head: Normal to inspection General: Appearance normal, both eyes and all related structures Neck: Normal visual inspection Chest: Normal palpation of entire chest wall Respiratory: N ormal respiratory effort Neurology: Patient oriented x3, reports constant leg pain and neuropathy, affecting mobility and sleep. Results - Imaging: X-rays were performed at the pain management clinic. Plan 1. Chronic Back Pain - Continue current medication regimen with tramadol and baclofen, but adhere to prescribed dosages. - Initiate physical therapy as recommended by pain management. - Consider MRI following therapy sessions to further evaluate the condition. - Prescribe meloxicam as a nonsteroidal anti-inflammatory to manage pain. 2. Neuropathy - Monitor progression of neuropathy symptoms during therapy sessions. - Evaluate effectiveness of current pain management strategy. 3. Insomnia - Address insomnia by managing pain effectively with prescribed medications. - Encourage adherence to tramadol and baclofen dosages to prevent exacerbation of insomnia. Discussion Notes I discussed with the patient the importance of adhering to the prescribed dosages of tramadol and baclofen to manage pain and prevent insomnia exacerbation. We agreed on initiating physical therapy as recommended by the pain management clinic and considering an MRI following therapy sessions. I also prescribed meloxicam as a nonsteroidal anti-inflammatory to help manage the pain. Patient Instructions - Take tramadol and baclofen as prescribed, without exceeding the recommended dosage. - Attend physical therapy sessions as scheduled. - Take meloxicam once daily as prescribed to help manage pain. - Follow up with the clinic if symptoms persist or worsen. Orders: Orders Complete Blood Count no Diff Today I10 - Essential (primary) hypertension Basic Metabolic Panel Today I10 - Essential (primary) hypertension Liver Panel Today I10 - Essential (primary) hypertension Thyroid Stimulating Hormone Today I10 - Essential (primary) hypertension Lipid Panel Today I10 - Essential (primary) hypertension UA and rflx microscopic Today I10 - Essential (primary) hypertension Medications: New meloxicam 15 mg PO DAILY 14 tabs 0RF
[2024-10-19 14:12] VITALS: BP 128/68; PULSE 62; TEMP 36.2; O2SAT 96; BMI 32.2
--- OUTSIDE RECORDS SUMMARY | 2024-10-19 14:57 | XMS_ITS | Clinical Summary ---
Author Organization [facility], Address [address] [place] [address] Phone Care Team Providers Care Slumber Room Attendant Name Role Phone Albert Montez MD Primary Care Provider [phone] Allergies Active Allergy Reactions Criticality Noted Date Comments Azithromycin 10/15/2020 Lisinopril 10/15/2020 Medications Eliquis 5 MG tablet Take 5 mg by mouth twice a day TWICE DAILY FOR 30 DAYS 1 Active baclofen (LIORESAL) 10 MG tablet Take 10 mg by mouth at bed time 1 Active cetirizine (ZyrTEC) 10 MG tablet 1 Active Cartia XT 180 MG 24 hr capsule Take 180 mg by mouth 1 (one) time each day 1 Active EQUATE STOOL SOFTENER 100 MG capsule Take 100 mg by mouth 1 (one) time each day 1 Active metoprolol tartrate (LOPRESSOR) 50 MG tablet Take 50 mg by mouth 2 (two) times a day 1 Active traMADol (ULTRAM) 50 MG tablet Take 50 mg by mouth 2 (two) times a day if needed 1 Active atorvastatin (LIPITOR) 40 MG tablet Take 40 mg by mouth 1 (one) time each day Active gemfibrozil (LOPID) 600 MG tablet Take 600 mg by mouth 2 (two) times a day before meals Active omeprazole (PriLOSEC) [address] capsule Take 20 mg by mouth 2 (two) times a day Do not crush or chew. Active isosorbide mononitrate (IMDUR) 30 MG 24 hr tablet Take 30 mg by mouth 1 Active fluticasone (Flonase) 50 MCG/ACT nasal spray Administer into affected nostril(s) 7 Active Breo Ellipta 200-25 MCG/INH aerosol powder Inhale 1 puff 1 (one) time each day 2 Active traZODone (DESYREL) 50 MG tablet Take 50 mg by mouth 1 Active dilTIAZem (TIAZAC) 180 MG 24 hr capsule Take 180 mg by mouth 1 Active albuterol HFA (ProAir HFA) 108 (90 Base) MCG/ACT inhaler Inhale 7 Active apixaban (ELIQUIS) 5 MG tablet Take 5 mg by mouth 1 Active Active Problems Problem Noted Date Diagnosed Date Asthma 05/06/2021 Stage 3 chronic kidney disease 10/15/2020 Hyperlipidemia 10/15/2020 Hypertension 10/15/2020 Gastroesophageal reflux disease 05/16/2008 Benign prostatic hyperplasia 05/16/2008 Immunizations Immunization Administration Dates Next Due Pneumococcal Polysaccharide 04/02/2012 Td, Unspecified 10/27/2000 Social History Tobacco Use Types Packs/Day Years [...] on file Sexual Orientation Not on file Plan of Treatment Health Maintenance Due Date Last Done Comments Colorectal Cancer Screening: Annual FOBT 10/24/2007 Colorectal Cancer Screening: Colonoscopy 10/24/2007 Colorectal Cancer Screening: Sigmoidoscopy 10/24/2007 Pneumococcal Vaccine: 50+ Ye ars (2 of 2 - PCV) 04/02/2013 04/02/2012 Influenza Vaccine (#1) 2024 Pneumococcal Vaccine: Peds ( 0 to 5 Years) and At-Risk Patients (6 to 49 Years) Discontinued 04/02/2012 Hepatitis B Vaccine Aged Out No longe r eligible based on patient's age to complete this topic Insurance [employer] Dual SNP ([id number]) [place] [id number] Care Teams Slumber Room Attendant Relationship Specialty Start Date End Date Albert Montez MD [address] [place] PCP - General Internal Medicine 10/15/20
--- OUTSIDE RECORDS SUMMARY | 2024-10-19 14:57 | XMS_ITS | Encounter Summary ---
Author Organization [facility], Address [address] [place] [address] Phone Care Team Providers Care Real Time Analyst Name Role Phone Albert Montez MD Primary Care Provider [phone] Encounter Details Date Type Department Care Team (Late st Contact Info) Description 05/07/2021 Documentation Only [facility], [address] [place] [address] Ruddy Amezcua MD [address] [place] [address] Social History Tobacco Use Types [...] on filedocumented in this encounter Care Teams Real Time Analyst Relationship Specialty Start Date End Date Albert Montez MD [address] [place], [place] PCP - General Internal Medicine 10/15/20 documented as of this encounter
== END 2024-10-19 14:37 | disposition home or self-care (01) ==
LOC: HO.HMCH 14:01
PROVIDERS: PCP Internal Medicine; Visit Provider Internal Medicine
DX: I10 Essential (primary) hypertension (principal)

== ENCOUNTER → 2024-10-19 14:00 | Outpatient (BNVA) | payer MEDICARE, SELFPAY | PROVIDERS: PCP Internal Medicine; Visit Provider Internal Medicine | DX: I10 Essential (primary) hypertension (principal) | CPT/HCPCS: 99212 ==

== ENCOUNTER 2024-10-27 10:18 | Outpatient (REF) | payer MEDICARE, SELFPAY ==
--- OUTSIDE RECORDS SUMMARY | 2024-10-27 11:36 | XMS_ITS | Encounter Summary ---
Author Organization [facility], Address [address] [place] [address] Phone Care Team Providers Care Agricultural Service Technician Name Role Phone Albert Montez MD Primary Care Provider [phone] Encounter Details Date Type Department Care Team (Late st Contact Info) Description 05/07/2021 Documentation Only [facility], [address] [place] [address] Ruddy Amezcua MD [address] [place] [address] Social History Tobacco Use Types [...] on filedocumented in this encounter Care Teams Agricultural Service Technician Relationship Specialty Start Date End Date Albert Montez MD [address] [place], [place] PCP - General Internal Medicine 10/15/20 documented as of this encounter
--- OUTSIDE RECORDS SUMMARY | 2024-10-27 11:36 | XMS_ITS | Clinical Summary ---
Author Organization [facility], Address [address] [place] [address] Phone Care Team Providers Care Customer Success Representative Name Role Phone Albert Montez MD Primary Care Provider [phone] Allergies Active Allergy Reactions Criticality Noted Date [...] [facility] Dual SNP (A2793) [place] M[place] [id number] Care Teams Customer Success Representative Relationship Specialty Start Date End Date Albert Montez MD [address] [place] PCP - General Internal Medicine 10/15/20
[2024-10-27 14:14] LABS: Hematocrit 35.3 % (42.0-52.0); Hemoglobin 11.7 g/dl (14.0-18.0); Mean Corpuscular HGB Conc 33.1 g/dl (31.0-36.0); Mean Corpuscular Hemoglobin 29.5 pg (27.0-33.0); Mean Corpuscular Volume 89.1 fL (80.0-98.0); NRBC Abs Auto 0.000 X10*3/uL (0.0-0.012); NRBC Pct Auto 0.0 /100WBC (0.0-0.2); Platelet Count 184 X10*3/uL (160-400); Red Blood Count 3.96 X10*6/uL (4.60-5.80); White Blood Count 5.1 X10*3/uL (4.8-10.8)
[2024-10-27 14:26] LABS: Appearance Urine Clear; Glucose Urine UA Negative (Negative); PH 5.0 (5.0-9.0); Specific Gravity - Urine 1.010 (1.005-1.025)
[2024-10-27 14:33] LABS: Alanine Aminotransferase 30 U/L (0-40); Albumin Level 4.8 g/dL (3.5-5.0); Alkaline Phosphatase 81 U/L (39-117); Anion Gap 12 (12-20); Aspartate Amino Transferase 31 U/L (5-37); Blood Urea Nitrogen 21 mg/dL (9-16); Calcium 9.0 mg/dL (8.4-10.2); Carbon Dioxide 21 mmol/L (22-29); Chloride 109 mmol/L (96-108); Cholesterol 198 mg/dL (<200); Estimated Glomerular Filt Rate 44; HDL Cholesterol 41 mg/dL (>40); Potassium 4.4 mmol/L (3.3-5.1); Sodium 138 mmol/L (135-145); Total Protein 7.5 g/dL (6.5-8.0); Triglycerides 513 mg/dL (<150)
[2024-10-27 14:39] LABS: Thyroid Stimulating Hormone 1.01 uIU/mL (0.32-4.0)
== END 2024-10-27 10:19 | disposition home or self-care (01) ==
LOC: HO.WFDLDS 10:18
PROVIDERS: Visit Provider Internal Medicine
DX: I10 Essential (primary) hypertension (principal)
CPT/HCPCS: 36415; 80048; 80061; 80076; 81003; 84443; 85027

== ENCOUNTER 2024-12-14 09:05 | Outpatient (REF) | payer MEDICARE, SELFPAY ==
--- NOTE | 2024-12-14 09:08 | EMG_ITS ---
Chief complaint: Chronic back pain, right-sided. Bilateral feet numbness. Reason for referral: Evaluate for radiculopathy versus neuropathy Referred by: Manasa Key NP Procedure done: Bilateral lower extremity NCS/EMG Precautions and/or limitations: On Eliquis The limb temperature was monitored continuously and remained between 32-36 degrees C during the performance of the NCS. Nerve Conduction Studies Anti Sensory Summary Table ?Stim Site NR Onset (ms) Norm Onset (ms) Peak (ms) Norm Peak (ms) O-P Amp (?V) Norm O-P Amp Site1 Site2 Delta-0 (ms) Dist (cm) Sabino (m/s) Norm Sabino (m/s) Left Sural Anti Sensory (Lat Mall) Calf ? 2.2 2.8 <4.0 6.8 >5.0 Calf Lat Mall 2.2 14.0 64 Right Sural Anti Sensory (Lat Mall) Calf ? 2.8 3.5 <4.0 16.5 >5.0 Calf Lat Mall 2.8 14.0 50 Motor Summary Table ?Stim Site NR Onset (ms) Norm Onset (ms) O-P Amp (mV) Norm O-P Amp iAmp (mV) Amp (1st) (%) Site1 Site2 Delta-0 (ms) Dist (cm) Sabino (m/s) Norm Sabino (m/s) Right Peroneal Motor (Ext Dig Brev) Ankle ? 3.9 <4.0 4.8 >2.5 6.7 100.0 Ankle Ext Dig Brev 3.9 0.0 B Fib ? 10.5 4.0 5.3 83.3 B Fib Ankle 6.6 30.0 45 >40 Poplt ? 11.6 4.0 5.3 83.3 Poplt B Fib 1.1 6.0 55 >40 Left Tibial Motor (Abd Cordero Brev) Ankle ? 3.5 <5 9.7 >2.5 13.2 100.0 Ankle Abd Cordero Brev 3.5 0.0 Knee ? 12.2 6.8 9.5 70.1 Knee Ankle 8.7 37.0 43 >40 Right Tibial Motor (Abd Cordero Brev) Ankle ? 3.8 <5 3.9 >2.5 5.9 100.0 Ankle Abd Cordero Brev 3.8 0.0 Knee ? 11.9 3.6 5.0 92.3 Knee Ankle 8.1 36.0 44 >40 EMG ?Side Muscle Nerve Root Ins Act Fibs Psw Amp Dur Poly Recrt Int Pat Comment Right AbdHallucis MedPlantar S1-2 Nml Nml Nml Nml Nml 0 Nml Complete Right AntTibialis Dp Br Peron L4-5 Nml Nml Nml Nml Nml 0 Nml Complete Right PostTibialis Tibial L5, S1 Nml Nml Nml Nml Nml 0 Nml Complete Right MedGastroc Tibial S1-2 Nml Nml Nml Nml Nml 0 Nml Complete Right VastusMed Femoral L2-4 Nml Nml Nml Nml Nml 0 Nml Complete Left AbdHallucis MedPlantar S1-2 Nml Nml Nml Nml Nml 0 Nml Complete Left AntTibialis Dp Br Peron L4-5 Nml Nml Nml Nml Nml 0 Nml Complete Left MedGastroc Tibial S1-2 Nml Nml Nml Nml Nml 0 Nml Complete Left VastusMed Femoral L2-4 Nml Nml Nml Nml Nml 0 Nml Complete Left Peroneus Long Sup Br Peron L5-S1 Nml Nml Nml Nml Nml 0 Nml Complete FINDINGS: All motor and sensory nerves tested showed normal latencies, amplitudes and conduction velocities. Concentric needle EMG was performed in selected muscles of the bilateral lower extremity. Study did not reveal signs of electric abnormalities as shown in the table above. IMPRESSION: 1. This is a normal study. 2. There is no electrodiagnostic evidence for peroneal neuropathy, tibial neuropathy, lumbosacral plexopathy, lumbar radiculopathy, or peripheral neuropathy. Thank you for your kind referral. Rupa Hauser MD, TEOFILO Board Certified, [place] Board [employer] and Rehabilitation (ABPMR) Board Certified, [place] Board of Electrodiagnostic Medicine (ABEM) CODIN [id number], 2 extremities MTDD
== END 2024-12-14 09:06 | disposition home or self-care (01) ==
LOC: HO.NEURO 09:05
PROVIDERS: PCP Internal Medicine; Visit Provider Registered Nurse Emergency
DX: R20.2 Paresthesia of skin (principal); R20.0 Anesthesia of skin; G89.29 Other chronic pain; M54.9 Dorsalgia, unspecified
CPT/HCPCS: 95886; 95909

== ENCOUNTER → 2024-12-14 09:08 | Outpatient (BNV) | payer MEDICARE, SELFPAY | PROVIDERS: PCP Internal Medicine; Visit Provider Physical Medicine & Rehabilitation | DX: M54.50 Low back pain, unspecified (principal); R20.2 Paresthesia of skin | CPT/HCPCS: 95886; 95909 ==

== ENCOUNTER 2024-12-19 09:32 | Outpatient (AMB) | payer MEDICARE, SELFPAY ==
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
[2024-12-19 09:49] VITALS: BP 140/70; PULSE 62; BMI 32.0
--- OUTSIDE RECORDS SUMMARY | 2024-12-19 10:45 | XMS_ITS | Encounter Summary ---
Author Organization [facility], Address [address] [place] [address] Phone Care Team Providers Care Employment Educational Coord Name Role Phone Albert Montez MD Primary Care Provider [phone] Encounter Details Date Type Department Care Team (Late st Contact Info) Description 05/07/2021 Documentation Only [facility], [address] [place] [address] Ruddy Amezcua MD [address] [place] [address] Social History Tobacco Use Types [...] on filedocumented in this encounter Care Teams Employment Educational Coord Relationship Specialty Start Date End Date Albert Montez MD [address] [place], [place] PCP - General Internal Medicine 10/15/20 documented as of this encounter
--- OUTSIDE RECORDS SUMMARY | 2024-12-19 10:45 | XMS_ITS | Clinical Summary ---
Author Organization [facility], Address [address] [place] [address] Phone Care Team Providers Care Clinical Laboratory Scientist Name Role Phone Albert Montez MD Primary Care Provider [phone] Allergies Active Allergy Reactions Criticality Noted Date [...] [facility] Dual SNP ([id number]) [place] [id number] Care Teams Clinical Laboratory Scientist Relationship Specialty Start Date End Date Albert Montez MD [address] [place] PCP - General Internal Medicine 10/15/20
== END 2024-12-19 10:17 | disposition home or self-care (01) ==
LOC: HO.HCS 09:33
PROVIDERS: PCP Internal Medicine; Visit Provider Internal Medicine Cardiovascular Disease
DX: I10 Essential (primary) hypertension (principal); I34.0 Nonrheumatic mitral (valve) insufficiency; R07.89 Other chest pain
CPT/HCPCS: 93010; 99214

== ENCOUNTER → 2024-12-19 09:32 | Outpatient (BNVA) | payer MEDICARE, SELFPAY | PROVIDERS: PCP Internal Medicine; Visit Provider Internal Medicine Cardiovascular Disease | DX: I10 Essential (primary) hypertension (principal); R07.89 Other chest pain; I34.0 Nonrheumatic mitral (valve) insufficiency; J45.909 Unspecified asthma, uncomplicated; I48.0 Paroxysmal atrial fibrillation; Z79.01 Long term (current) use of anticoagulants | CPT/HCPCS: 93005; 99212 ==